=== PATIENT | female | born 1955 | race African-American/Black ===

== ENCOUNTER 2017-06-01 07:11 | Inpatient (IN) ==
[2017-06-01] MEDS ORDERED: ASPIRIN 325 MG TABLET PO STA (07:27)
[2017-06-01] MEDS ORDERED: KETOROLAC 30 MG/1 ML VIAL IV STA (07:27)
[2017-06-01] MEDS ORDERED: NITROGLYCERIN 2% OINT 1 INCH/GM PACK TOP STA (07:27)
[2017-06-01] MEDS ORDERED: METOPROLOL TARTRATE 5 MG/5 ML VIAL IV STA ×2 (07:27→08:24)
--- NOTE | 2017-06-01 07:31 | Emergency Department Note ---
Arrival - Arrival Chief Complaint: Chest Pain ED Nursing Triage Note: Patient sent from renal care with complaint of chest pain. States that pain is under her left breast. States that she had it all night. Non-radiating. States that it is a pressure type pain. Some relief with nitroglycerine. Mode of Arrival: Stretcher Limitations: No Limitations Source: Patient Time Seen by Provider: 06/01/17 07:27 - History of Present Illness HPI Narrative: This 62-year-old black female presents with intermittent left-sided chest pain under her left breast not associated with nausea, vomiting, diaphoresis, or shortness of breath. She likewise denies any heartburn, belching, water brash, orthopnea, or PND. The patient is a dialysis patient and expressed complaints of pain this morning prior to dialysis and was referred here without receiving any dialysis today. At the moment she has no complaints of pain and is medically stable. Onset (ago): hour(s) (Patient presents 12 hours post onset of symptoms) Allergies/Adverse Reactions: Allergies Allergy/AdvReac Type Severity Reaction Status Date / Time iodine Allergy RASH Verified 04/28/17 08:58 Home Medications: Home Medications Medication Instructions Recorded Confirmed Type Labetalol Tab [Trandate Tab] 300 mg PO BID 02/15/15 09/05/16 History hydrALAZINE TAB [Apresoline Tab] 50 mg PO TID 02/15/15 09/05/16 History Doxazosin [Cardura] 2 mg PO DAILY 09/05/16 09/05/16 History Gabapentin 200 mg PO BID 09/05/16 09/05/16 History HYDROcodone/ACETAMIN 7.5-325 1 tablet PO Q6H #14 tablet 09/05/16 Rx [Martin 7.5-325] Insulin Glargine [Lantus] 45 unit SUBCUT DAILY 09/05/16 09/05/16 History Travoprost 0.004% Oph Soln 1 drop BOTH EYES BEDTIME 09/05/16 09/05/16 History [Travatan Z] amLODIPine [Norvasc] 10 mg PO DAILY 09/05/16 09/05/16 History cloNIDine TAB [Catapres Tab] 0.3 mg PO TID 09/05/16 09/05/16 History HYDROcodone/ACETAMIN 7.5-325 1 tablet PO Q6H PRN #20 tablet 04/28/17 Rx [Martin 7.5-325] Ondansetron Odt Tab [Zofran Odt] 4 mg PO Q8H PRN #10 tablet 04/28/17 Rx Review of System - Review of System 12 point system: reviewed and no additional remarkable complaints except as stated - Review of System Constitutional: Present: as per HPI Respiratory: Present: as per HPI Cardiovascular: Present: as per HPI Gastrointestinal: Present: as per HPI Genitourinary female: Present: as per HPI Medical,Surgical,& Family Hx - Medical History Cardio: History of: Hypertension, [place] (2011) Neurology: History of: Cerebrovascular Accident (2011) No history of: Seizures Endocrine: History of: Diabetes Mellitus (IDDM) Renal: History of: Dialysis ( DR TUTTLE), Renal Failure Musculoskeletal: History of: Musculoskeletal Problems (FX LEFT DISTAL RADIUS) - Surgical History HEENT Surgeries: Surgical HX of: Eye Surgery (CATARACTS) Orthopedic Surgeries: Surgical HX of;: Orthopedic Surgery (ORIF LEFT DITAL RADIUS) - Family History Family History: Reports;: Family Cancer (SISTER), Family Diabetes (DAD) - Social History Smoking Status: Never smoker Exam Physical Examination: GENERAL: Well developed, well nourished black female in no acute distress. HEENT: Normocephalic. No trauma. Moist mucous membranes. EOMI. PERRLA. ENT NML NECK: Supple. No adenopathy. CARDIAC: Regular. No murmurs. Heart rate 70 CHEST: Clear to auscultation. No respiratory distress. O2 sat 94% ABDOMEN: Soft. Nontender. Active bowel sounds. EXTREMITIES: No trauma. Normal ROM. No pedal edema. Left thigh fistula with good thrill SKIN: No diaphoresis. No rash. NEURO: Alert. Neuro intact. No focal deficits. Vital Signs: Vital Signs Temperature 98.0 F 06/01/17 08:15 Pulse Rate 69 06/01/17 09:09 Respiratory Rate 18 06/01/17 09:09 Blood Pressure 180/74 06/01/17 09:09 O2 Sat by Pulse Oximetry 100 06/01/17 09:09 Course - Reevaluation(s) Reevaluation #1: Discussed with patient the results of her studies which revealed significant fluid overload as well as her significant hypertension problems require hospitalization for further evaluation treatment. - Consultations Consultation #1: Discussed with hospitalist service who will admit for further evaluation treatment. Results - Labs CBC & BMP: 06/01/17 07:51 06/01/17 07:51 - Impressions EKG: Sinus rhythm at 70 with normal KS interval and QRS duration. Possible old anterior infarct versus poor R-wave progression anteriorly. Nonspecific ST changes with some leads revealing peak T's in inferior leads revealing T-wave inversion. - Diagnostic Findings Procedure: Chest x-ray: image reviewed by me, report reviewed by me ( Cardiomegaly with moderate congestive failure and bilateral small pleural effusions) Disposition Clinical Impression: Congestive heart failure, Chronic renal failure, Dialysis dependent renal failure, Uncontrolled blood pressure. Case discussed with: patient Disposition: Still a Patient Condition: Guarded Time of Disposition: 09:12
--- NOTE | 2017-06-01 07:46 | XRay Report ---
Portable chest Date: 06/01/2017 Clinical history: Chest pain Comparison: 10/21/2015 Technique: Portable AP sitting chest Findings: The heart is minimally enlarged with calcification in the aortic knob. Progressive diffuse parenchymal findings especially in the lower lung zones with small pleural effusions. The pulmonary vasculature is more prominent. Degenerative changes with multiple metallic stents and additional postoperative findings in the right arm. Impression: Cardiomegaly with [id number] CHF and small pleural effusions. PROCEDURE INTERPRETED AT [facility] DEPARTMENT OF RADIOLOGY Final Report Signed by: Dr. Trena Melton
[2017-06-01] MEDS ORDERED: NITROGLYCERIN 2% OINT 1 INCH/GM PACK TOP ONE (07:53)
[2017-06-01] MEDS ORDERED: KETOROLAC 30 MG/1 ML VIAL ONE (07:54)
[2017-06-01] MEDS ORDERED: METOPROLOL TARTRATE 5 MG/5 ML VIAL IV ONE ×2 (07:54→08:21)
[2017-06-01 08:01] LABS: Basophils # 0.1 10*3/uL (0.0-0.2); Basophils % 1.3 % (0.0-0.8); Eosinophils # 0.1 10*3/uL (0.0-0.87); Eosinophils % 2.5 % (0.00-10.9); Hematocrit 30.6 VOL% (35.7-47.0); Hemoglobin 9.5 GM/DL (12.0-16.0); Immature Granulocytes % 0.5 %; Immature Granulocytes Absolute 0.02 #; Lymphocytes # 0.9 10*3/uL (1.4-4.0); Lymphocytes % 21.8 % (21.3-54.2); Mean Corpuscular Hemoglobin 27 PG (27-34); Mean Corpuscular Volume 88.2 FL (87-102); Mean Platelet Volume 11.5 FL (9.6-12.0); Monocytes # 0.4 10*3/uL (0.11-0.8); Monocytes % 10.3 % (1.7-12.7); Neutrophils # 2.6 10*3/uL (1.4-7.4); Neutrophils % 63.6 % (38.7-73.9); Platelet Count 170 T/CUMM (130-400); Red Blood Count 3.47 MC/CUMM (3.8-5.5); Red Cell Distribution Width 15.7 % (9.3-17.3)
[2017-06-01 08:10] LABS: INR 1.1; PT Patient Result 11.8 SECS; Partial Thromboplastin Time 27.6 SECS (0-40)
[2017-06-01] MEDS ORDERED: hydrALAZINE 20 MG/1 ML VIAL ONE (08:21)
[2017-06-01] MEDS ORDERED: hydrALAZINE 20 MG/1 ML VIAL IV STA (08:24)
[2017-06-01 08:51] LABS: Alanine Aminotransferase < 9 U/L (13-56); Albumin 3.3 G/DL (3.4-5.0); Alkaline Phosphatase 366 U/L (45-117); Aspartate Amino Transferase 16 U/L (0-37); Blood Urea Nitrogen 21 MG/DL (7-18); Calcium 7.7 MG/DL (8.5-10.1); Glucose 225 MG/DL (74-106); Osmolality,Calculated 282.8 MOS/KG (273-304); Sodium 137 MMOL/L (136-145); Total Protein 8.1 G/DL (6.4-8.3); Troponin I Only 0.016 NG/ML (0.00-0.045)
--- NOTE | 2017-06-01 09:46 | Hospitalist History & Physical ---
<Rural ValleyMichel beck - Last Filed: 06/01/17 10:14> Assessment and Plan - Time spent with patient Time spent with patient: Greater than 30 minutes (1) End-stage renal disease on hemodialysis Status: Acute Assessment and plan: Patient dialyzes MWF in [place]. Will need to continue dialysis today. Nephrology has been consulted. Current Visit: Yes (2) CHF (congestive heart failure) Status: Acute Assessment and plan: History of CHF. Has been followed by Dr. Benítez in the past but has not seen a butcher helper in over 3 years. Echocardiogram. Consult cardiology. Current Visit: Yes (3) Diabetes mellitus Status: Acute Assessment and plan: Accu-cheks ACHS. SS insulin per protocol. Current Visit: Yes (4) Hypertension Status: Acute Assessment and plan: Continue home medications. Add hydralazine PRN. Current Visit: Yes (5) History of [place] (myocardial infarction) Status: Acute Assessment and plan: LHC in past without intervention. Ordering an echo today. Cardiology has been consulted. Current Visit: Yes History of Present Illness Chief complaint: chest tightness History of present illness: Ms. Man is a 62 year old female with a past medical history significant for hypertension, CHF, IL, ESRD on HD who presents with complaints of chest pain/tightness having onset this morning. The patient dialyzes on MWF at the [place] dialysis center and was set to dialyze this morning when she developed chest tightness. She was then referred to the ER for further evaluation prior to dialysis. En route to the ED, the patient received SL NTG with minimal relief. In the ER, the patient was found to be hypertensive and still complaining of chest tightness. 1/2 inch NTG paste was applied to her chest. At the time of my exam, the patient was resting comfortably with her daughter at bedside. Her daughter reports that the patient has been complaining of intermittent chest pain for the past 2 weeks. She did go to the [facility] on yesterday at which time she had an EKG that showed no acute events. She confirms continued chest "tightness" localized in the left chest that is nonradiating and nonreproducible to palpation. She denies headache , blurry vision, shortness of breath, abdominal pain, nausea/vomiting, change in appetite or bowel habits. The patient has been on HD for approx 12 years and no longer makes urine. Hematology is grossly normal. BUN 21 creatinine 6.30, serum glucose 225, troponin I 0.016, BNP 883. Chest x-ray shows cardiomegaly with mild to moderate CHF and small pleural effusions. This case been discussed with both Dr. Mccann, ER physician, Dr. Antony, admitting physician, and the patient will be admitted to the hospital medicine service for further evaluation and treatment. Patient is a full code. Home medications have been reviewed and reconciled. Of note, the patient has previously been followed by Dr. Benítez but has not been seen in over 3 years. Her PCP is Deyanira Bergman. Her autopsy pathologist is the [facility]. Home Medications Medication Instructions Recorded Confirmed Type Labetalol Tab [Trandate Tab] 300 mg PO BID 02/15/15 06/01/17 History hydrALAZINE TAB [Apresoline Tab] 50 mg PO TID 02/15/15 06/01/17 History amLODIPine [Norvasc] 10 mg PO QAM 09/05/16 06/01/17 History cloNIDine TAB [Catapres Tab] 0.3 mg PO TID 09/05/16 06/01/17 History HYDROcodone/ACETAMIN 7.5-325 1 tablet PO Q6H PRN #20 tablet 04/28/17 06/01/17 Rx [[place] 7.5-325] Carbidopa/Levodopa 25-100 [Sinemet 1 tablet PO TID 06/01/17 06/01/17 History 25-100] Cinacalcet HCl [Sensipar] 90 mg PO QAM 06/01/17 06/01/17 History Insulin Degludec [Tresiba 10 units SUBCUT BEDTIME 06/01/17 06/01/17 History Flextouch U-100] Nadolol [Nadolol] 40 mg PO BID 06/01/17 06/01/17 History Sevelamer Carbonate Tab [Renvela 800 mg PO TID W/MEALS 06/01/17 06/01/17 History Tab] Allergies Allergy/AdvReac Type Severity Reaction Status Date / Time iodine Allergy RASH Verified 04/28/17 08:58 Medical,Surgical,& Family Hx - Medical History Cardio: History of: Hypertension, [place] (2011) Neurology: History of: Cerebrovascular Accident (2011) No history of: Seizures Endocrine: History of: Diabetes Mellitus (IDDM) Renal: History of: Dialysis (-w- DR TUTTLE), Renal Failure Musculoskeletal: History of: Musculoskeletal Problems (FX LEFT DISTAL RADIUS) - Surgical History HEENT Surgeries: Surgical HX of: Eye Surgery (CATARACTS) Reproductive Surgeries: Surgical HX of;: Hysterectomy Orthopedic Surgeries: Surgical HX of;: Orthopedic Surgery (ORIF LEFT DITAL RADIUS) - Family History Family History: Reports;: Family Cancer (SISTER), Family Diabetes (DAD), Family Hypertension - Social History Smoking Status: Never smoker Frequency of Alcohol Use: None Type of Drug Use: None Marital Status: Single Lives With:: Alone Functional capacity: independent ambulation 12 point system: reviewed and no additional remarkable complaints except as stated Exam - Constitutional Vitals: Period Temp Pulse Resp BP Sys/Lewis Pulse Ox Last 24 Hr 98.0 F-98.0 F 66-70 18-19 162-232/74-113 94-100 Exam: General appearance: overweight, no acute distress - Head Head exam: Present: normocephalic, atraumatic - Eye Eye exam: Present: EOMI. Absent: conjunctival injection, nystagmus Pupils: Present: MAYITO, normal accommodation - ENT ENT exam: Present: normal exam, normal external ear exam - Neck Neck exam: Present: normal inspection. Absent: lymphadenopathy, tenderness, thyromegaly - Respiratory Respiratory exam: Present: decreased breath sounds throughout. Absent: wheezes - Cardiovascular Cardiovascular exam: Present: regular rate and rhythm. Absent: carotid bruit, gallop, rubs - GI/Abdominal GI/Abdominal exam: Present: normal bowel sounds. Absent: ascites, distended, mass - Extremities Exam Extremities exam: Present: normal inspection, normal capillary refill, left femoral AV graft, edematous LLE. - Back Exam Back exam: Absent: CVA tenderness (L), CVA tenderness (R) - Neurological Exam Neurological exam: Present: alert, oriented X3, CN II-XII intact, reflexes normal - Psychiatric Psychiatric exam: Present: normal affect, normal mood - Skin Skin exam: Present: normal color, warm, dry Results - Labs CBC & BMP: 06/01/17 07:51 06/01/17 07:51 Lab Results: I have reviewed the past 24 hour labs - Diagnostic Findings Procedure: Chest x-ray: image reviewed by me, report reviewed by me (Mild CHF) <Xenia Antony - Last Filed: 06/01/17 16:44> History of Present Illness History of present illness: Ms. Man is a 62 year old female Exam - Constitutional Vitals: Period Temp Pulse Resp BP Sys/Lewis Pulse Ox Last 24 Hr 97.8 F-98.0 F 66-70 18-20 162-232/74-113 94-100 Results - Labs CBC & BMP: 06/01/17 07:51 06/01/17 07:51 - Impressions Patient seen and examined. I have reviewed the H&P by PRASHANT Lopez, and I agree with the documentation. Medications reconciled. Labs/ekg/cxray reviewed. Active Issues: 1. Acute chest pain, concerning for ACS. EKG shows TWI in leads III and AVF. She will be undergoing further evaluation with C. Appreciate help by cardiology 2. Hypertensive crises: blood pressure has improved since HD. Will continue home regimen of norvasc. Will likely benefit from coreg. 3. h/o ESRD: patient undergoes HD MWF. Today, she developed chest pain while at outpatient dialysis. She was brought here for further evaluation. She underwent HD today and 3.5L was pulled off. Appreciate help from nephrology. 4. h/o DM will control sugars with insulin regimen 5. Volume overload: symptomatic with elevated BNP in the setting of ESRD. Cxray showed cardiomegaly with mild to moderate small pleural effusions. Would benefit from echo. Plan is to await results of LHC and follow cardiology recommendations. Control blood pressure and sugars. Suspect a short stay. CODE: FULL
[2017-06-01] MEDS ORDERED: ONDANSETRON 4 MG/2 ML VIAL IV PRN (11:17)
[2017-06-01] MEDS ORDERED: GLUCAGON 1 MG VIAL IM PRN ×2 (11:17)
[2017-06-01] MEDS ORDERED: DOCUSATE SODIUM 100 MG CAPSULE PO PRN (11:17)
[2017-06-01] MEDS ORDERED: LACTULOSE 20 GM/30 ML UDCUP PO PRN (11:17)
[2017-06-01] MEDS ORDERED: DEXTROSE 50% 25 GM/50 ML VIAL IV PRN (11:17)
[2017-06-01] MEDS ORDERED: DEXTROSE 50% 25 GM/50 ML SYRINGE IV PRN (11:17)
--- NOTE | 2017-06-01 14:58 | Nephrology Consult Note ---
History of Present Illness Chief complaint: End-stage renal disease History of present illness: Ms. Man is a 62 year old female history of end-stage renal disease due to hypertension and diabetes dialyzes at the [place] dialysis unit on them Sunday schedule. Patient presented to the dialysis unit today feeling shortness of breath and started having chest pain before dialysis was initiated. She was subsequently transferred to [facility]. She states the chest pressure is slightly better. She is found to be a volume overload with a BNP greater than 800. No fevers or chills. No change in her medications. Home Medications Medication Instructions Recorded Confirmed Type Labetalol Tab [Trandate Tab] 300 mg PO BID 02/15/15 06/01/17 History hydrALAZINE TAB [Apresoline Tab] 50 mg PO TID 02/15/15 06/01/17 History amLODIPine [Norvasc] 10 mg PO QAM 09/05/16 06/01/17 History cloNIDine TAB [Catapres Tab] 0.3 mg PO TID 09/05/16 06/01/17 History HYDROcodone/ACETAMIN 7.5-325 1 tablet PO Q6H PRN #20 tablet 04/28/17 06/01/17 Rx [Bessie 7.5-325] Carbidopa/Levodopa 25-100 [Sinemet 1 tablet PO TID 06/01/17 06/01/17 History 25-100] Cinacalcet HCl [Sensipar] 90 mg PO QAM 06/01/17 06/01/17 History Insulin Degludec [Tresiba 10 units SUBCUT BEDTIME 06/01/17 06/01/17 History Flextouch U-100] Nadolol [Nadolol] 40 mg PO BID 06/01/17 06/01/17 History Sevelamer Carbonate Tab [Renvela 800 mg PO TID W/MEALS 06/01/17 06/01/17 History Tab] Allergies Allergy/AdvReac Type Severity Reaction Status Date / Time iodine Allergy RASH Verified 04/28/17 08:58 Medical,Surgical,& Family Hx - Medical History Cardio: History of: Hypertension, [place] (2011) Neurology: History of: Cerebrovascular Accident (2011) No history of: Seizures Endocrine: History of: Diabetes Mellitus (IDDM) Renal: History of: Dialysis (- DR TUTTLE), Renal Failure Musculoskeletal: History of: Musculoskeletal Problems (FX LEFT DISTAL RADIUS) - Surgical History HEENT Surgeries: Surgical HX of: Eye Surgery (CATARACTS) Reproductive Surgeries: Surgical HX of;: Hysterectomy, Tubal Ligation Orthopedic Surgeries: Surgical HX of;: Orthopedic Surgery (ORIF LEFT DITAL RADIUS) - Family History Family History: Reports;: Family Cancer (SISTER), Family Diabetes (DAD), Family Hypertension - Social History Smoking Status: Never smoker Frequency of Alcohol Use: None Type of Drug Use: None Review of Systems Constitutional: no anorexia, no chills, no fatigue Cardiovascular: chest pain at rest, dyspnea, dyspnea on exertion Respiratory: dyspnea Gastrointestinal: no abdominal pain Genitourinary: no dysuria Exam - Vital Signs Vital signs: Period Temp Pulse Resp BP Sys/Lewis Pulse Ox Last 24 Hr 97.8 F-98.0 F 66-70 18-20 162-232/74-113 94-100 - General Appearance General appearance: well-developed, well-nourished EENT: ATNC, PERRL Neck: supple Respiratory: clear Cardiology: no edema, regular rate, regular rhythm Gastrointestinal: normoactive bowel sounds, no tenderness Neurologic: alert and oriented x3 Musculoskeletal: no deformities, no erythema, no clubbing Psychiatric: mood/affect appropriate, cooperative Results - Labs CBC & BMP: 06/01/17 07:51 06/01/17 07:51 Assessment and Plan (1) End-stage renal disease on hemodialysis Status: Chronic Assessment and plan: Continue with scheduled hemodialysis for this patient. Current Visit: Yes (2) Diabetes mellitus Status: Chronic Current Visit: Yes Qualifiers: Diabetes mellitus type: type 2 (3) Hypertension Status: Chronic Current Visit: Yes (4) CHF (congestive heart failure) Status: Chronic Current Visit: Yes (5) Chest pain Status: Acute Current Visit: Yes
--- NOTE | 2017-06-01 14:59 | Dialysis Note ---
Dialysis Note - Dialysis Note Patient seen on dialysis. She is tolerating the procedure. Extremity removed 3 -1/2 L of fluid. Blood pressure noted to be 170/80. Cardiovascular regular rate. Lungs are clear anterior. Abdomen is soft.
[2017-06-01] MEDS ORDERED: DIAZEPAM 5 MG TABLET PO ONE (15:19)
[2017-06-01] MEDS ORDERED: diphenhydrAMINE CAP 25 MG CAPSULE PO ONE (15:19)
[2017-06-01] MEDS ORDERED: POTASSIUM CHLORIDE RIDER 10 MEQ in PREMIX 1 EACH IV PRN (15:19)
[2017-06-01] MEDS ORDERED: MAGNESIUM SULF RIDER 2 GM in PREMIX 1 EACH IV PRN (15:19)
--- NOTE | 2017-06-01 15:23 | Cardiology Consult Note ---
Ernesto, Laurence Doshi RN, am scribing for, and in the presence of, Itz Jackson MD 15:22. Assessment and Plan - Time spent with patient Time spent with patient: Greater than 30 minutes (Due to assessment, planning, documentation, medication review) (1) Unstable angina Status: Acute Assessment and plan: The patient has symptoms very concerning for unstable angina. She has new EKG changes. She has multiple cardiac risk factors. She has new onset congestive heart failure. I think we should perform cardiac catheterization for definitive coronary artery assessment. I would like to use a right femoral artery access. I discussed the risks and alternatives with the patient today who understands and wishes to proceed. Current Visit: Yes (2) Chest pain Status: Acute Current Visit: Yes (3) CHF (congestive heart failure) Status: Chronic Current Visit: Yes (4) Diabetes mellitus Status: Chronic Current Visit: Yes Qualifiers: Diabetes mellitus type: type 2 (5) End-stage renal disease on hemodialysis Status: Chronic Current Visit: Yes (6) History of AL (myocardial infarction) Status: Chronic Current Visit: No (7) Hypertension Status: Chronic Current Visit: Yes History of Present Illness - Data of Consult Patient: known to practice within the last 3 years Consult date: 06/01/17 Requesting Physician: Michel Lopez Primary care physician: Deyanira Bergman - Consult Narrative Reason for consult: CHF History of present illness: 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 Porras (last seen December 2015) Ms. Man is a 62 year old female with a history of AL, hypertension, CVA, IDDM, and dialysis. She dialyzes Wednesdays and Fridays. She said when she had her AL she did not require any stents. She had a heart cath with Dr. Christensen June 2004 for complaints of dyspnea that did not show any significant coronary artery disease. She reports she is a lifetime non-smoker. She was seen today in dialysis along with Dr. Jerome. She began having left-sided chest tightness this morning. It did not radiate and is not reproducible with palpation, deep breathing, or movement of her left arm. She states exertion did make it worse, and resting did help the pain. She said it was a constant pain and she rated a 7 on a scale of 1-10. She denies any shortness of breath, palpitations, nausea, or dizziness with this pain. However she does tell me she has 4 pillow orthopnea and increased dyspnea on exertion. She presented to the emergency department for further evaluation. Chest x-ray showed cardiomegaly with mild to moderate CHF and small pleural effusions. EKG was sinus rhythm, heart rate of 70, no acute changes. Troponin has been negative. BNP was 883. Blood pressure was elevated in the emergency department, as high as 232/113. She was given IV Lopressor and hydralazine. She was given Nitro-Bid ointment in the emergency department, she states this did help her chest tightness. Her EKG shows new deep T-wave inversions in the inferior leads very concerning for ischemia. I discussed her case today with Dr. Jerome and I think she would be best served by cardiac catheterization for definitive coronary artery assessment. We are going to try to get that done later today. She now rates her chest tightness as a 3 on a scale of 1-10. She continues to deny any shortness of breath. Her pressures have improved, last pressure was 181/80. O2 sat 96% on 2 L of oxygen. CC: Xenia Antony MD - Home Medications and Allergies Home Medications: Home Medications Medication Instructions Recorded Confirmed Type Labetalol Tab [Trandate Tab] 300 mg PO BID 02/15/15 06/01/17 History hydrALAZINE TAB [Apresoline Tab] 50 mg PO TID 02/15/15 06/01/17 History amLODIPine [Norvasc] 10 mg PO QAM 09/05/16 06/01/17 History cloNIDine TAB [Catapres Tab] 0.3 mg PO TID 09/05/16 06/01/17 History HYDROcodone/ACETAMIN 7.5-325 1 tablet PO Q6H PRN #20 tablet 04/28/17 06/01/17 Rx [Goldonna 7.5-325] Carbidopa/Levodopa 25-100 [Sinemet 1 tablet PO TID 06/01/17 06/01/17 History 25-100] Cinacalcet HCl [Sensipar] 90 mg PO QAM 06/01/17 06/01/17 History Insulin Degludec [Tresiba 10 units SUBCUT BEDTIME 06/01/17 06/01/17 History Flextouch U-100] Nadolol [Nadolol] 40 mg PO BID 06/01/17 06/01/17 History Sevelamer Carbonate Tab [Renvela 800 mg PO TID W/06/01/17 06/01/17 History Tab] Allergies/Adverse Reactions: Allergies Allergy/AdvReac Type Severity Reaction Status Date / Time iodine Allergy RASH Verified 04/28/17 08:58 - Constitutional Constitutional: Present: as per HPI - EENT Eyes: Present: requires corrective lense. Absent: blurry vision Ears: Absent: ear pain, tinnitus Nose, mouth and throat: Absent: dysphagia, epistaxis, headache(s), neck pain, sore throat - Cardiovascular Cardiovascular: Present: chest pain at rest, chest pain with activity, edema, orthopnea (4 pillow orthopnea). Absent: diaphoresis, dyspnea, dyspnea on exertion, radiating jaw, neck or arm pain, lightheadedness, palpitations - Respiratory Respiratory: Present: cough. Absent: dyspnea, hemoptysis, dyspnea on exertion, wheezing - Gastrointestinal Gastrointestinal: Absent: abdominal pain, constipation, diarrhea, hematemesis, hematochezia, melena, nausea, vomiting - Genitourinary Genitourinary: Absent: dysuria, hematuria - Musculoskeletal Musculoskeletal: Present: limited range of motion, muscle weakness - Neurological Neurological: Present: abnormal gait, abnormal speech. Absent: confusion, dizziness, headache(s), syncope - Psychiatric Psychiatric: Absent: anxiety, depression - Endocrine Endocrine: Present: fatigue - Hematologic/Lymphatic Hematologic/Lymphatic: Present: easy bruising. Absent: easy bleeding Medical,Surgical,& Family Hx - Medical History Cardio: History of: Hypertension, AL (2011) Neurology: History of: Cerebrovascular Accident (2011) Endocrine: History of: Diabetes Mellitus (IDDM) Renal: History of: Dialysis (- DR TUTTLE), Renal Failure Musculoskeletal: History of: Musculoskeletal Problems (FX LEFT DISTAL RADIUS) - Surgical History HEENT Surgeries: Surgical HX of: Eye Surgery (CATARACTS) Reproductive Surgeries: Surgical HX of;: Hysterectomy, Tubal Ligation Orthopedic Surgeries: Surgical HX of;: Orthopedic Surgery (ORIF LEFT DITAL RADIUS) - Family History Family History: Reports;: Family Cancer (SISTER), Family Diabetes (DAD), Family Hypertension - Social History Smoking Status: Never smoker Have you smoked in the last 12 months: No Frequency of Alcohol Use: None Type of Drug Use: None Lives With:: Children Functional capacity: uses cane/walker Physical Examination Vital Signs Temp Pulse Resp BP Pulse Ox 98.0 F 70 19 162/92 100 06/01/17 07:15 06/01/17 07:15 06/01/17 07:15 06/01/17 07:15 06/01/17 07:15 General: Present: Appears Well, No Apparent Distress HEENT: Present: PERRL, Mucus Membranes Moist Neck: Present: Supple Neck, Midline Trachea, No Bruit Cardiac: Present: Reg Rate and Rhythm, Systolic Murmur Lungs: Present: Normal Breath Sounds, Oxygen (Via nasal cannula), No Wheeze, Rales, Rhonchi Neuro: Absent: Resting Tremor, Essential Tremor Abdomen: Present: Soft, Active Bowel Sounds Skin: Absent: Rash, Suspicious Lesions Gait: Present: Poor Gait Extremities: Present: Normal Upper Extr. Pulses, Normal Lower Extr. Pulses, Edema (Edema to left lower extremity), Other (Dialysis access to left thigh). Absent: Normal Gait Result/EKG - Labs CBC & BMP: 06/01/17 07:51 06/01/17 07:51 Lab Results: I have reviewed the past 24 hour labs Labs: Laboratory Results - last 24 hr 06/01/17 06/01/17 06/01/17 07:51 07:51 07:51 WBC RBC Hgb Hct MCV MCH MCHC RDW Plt Count MPV Neut % (Auto) Lymph % (Auto) [place] % (Auto) Eos % (Auto) Baso % (Auto) Neut # (Auto) Lymph # (Auto) [place] # (Auto) Eos # (Auto) Baso # (Auto) Immature Gran % Nucleated RBC % Immature Gran # Nucleated RBCs # Immature Plt Fraction INR 1.1 PT Patient/Control Mix 11.8 Circ Anticoag PTT 27.6 Sodium 137 Potassium 4.0 Chloride 101 Carbon Dioxide 27 Anion Gap 13.0 BUN 21 H Creatinine 6.30 H GFR Calculation 8 BUN/Creatinine Ratio 3.00 L Glucose 225 H Hemoglobin A1c Calculated Osmolality 282.8 Calcium 7.7 L Total Bilirubin 0.50 AST 16 ALT < 9 L Alkaline Phosphatase 366 H Total Creatine Kinase 84 CK-MB (CK-2) 2.3 Troponin I 0.016 B-Natriuretic Peptide 883 H Total Protein 8.1 Albumin 3.3 L Globulin 4.8 H Albumin/Globulin Ratio 0.6 L Free T4 TSH 3rd Generation 06/01/17 06/01/17 06/01/17 07:51 11:51 11:51 WBC 4.0 RBC 3.47 L Hgb 9.5 L Hct 30.6 L MCV 88.2 MCH 27 MCHC 31.0 L RDW 15.7 Plt Count 170 MPV 11.5 Neut % (Auto) 63.6 Lymph % (Auto) 21.8 [place] % (Auto) 10.3 Eos % (Auto) 2.5 Baso % (Auto) 1.3 H Neut # (Auto) 2.6 Lymph # (Auto) 0.9 L [place] # (Auto) 0.4 Eos # (Auto) 0.1 Baso # (Auto) 0.1 Immature Gran % 0.5 Nucleated RBC % 0.0 Immature Gran # 0.02 Nucleated RBCs # 0.00 Immature Plt Fraction 0.0 INR PT Patient/Control Mix Circ Anticoag PTT Sodium Potassium Chloride Carbon Dioxide Anion Gap BUN Creatinine GFR Calculation BUN/Creatinine Ratio Glucose Hemoglobin A1c 8.4 H Calculated Osmolality Calcium Total Bilirubin AST ALT Alkaline Phosphatase Total Creatine Kinase CK-MB (CK-2) Troponin I B-Natriuretic Peptide Total Protein Albumin Globulin Albumin/Globulin Ratio Free T4 1.36 TSH 3rd Generation 06/01/17 11:51 WBC RBC Hgb Hct MCV MCH MCHC RDW Plt Count MPV Neut % (Auto) Lymph % (Auto) [place] % (Auto) Eos % (Auto) Baso % (Auto) Neut # (Auto) Lymph # (Auto) [place] # (Auto) Eos # (Auto) Baso # (Auto) Immature Gran % Nucleated RBC % Immature Gran # Nucleated RBCs # Immature Plt Fraction INR PT Patient/Control Mix Circ Anticoag PTT Sodium Potassium Chloride Carbon Dioxide Anion Gap BUN Creatinine GFR Calculation BUN/Creatinine Ratio Glucose Hemoglobin A1c Calculated Osmolality Calcium Total Bilirubin AST ALT Alkaline Phosphatase Total Creatine Kinase CK-MB (CK-2) Troponin I B-Natriuretic Peptide Total Protein Albumin Globulin Albumin/Globulin Ratio Free T4 TSH 3rd Generation 2.880 - Diagnostic Findings Procedure: Chest x-ray: report reviewed by me - EKG EKG results: interpreted by me EKG shows: sinus rhythm IRenetta Michael, MD, personally performed the services described in this documentation, ascribed by Laurence Doshi RN in my presence, and it is both accurate and complete [id number] .
[2017-06-01] MEDS: INSULIN LISPRO 100 UNIT/ML SUBCUT SCH ×3 (15:27→20:10)
[2017-06-01] MEDS ORDERED: HEPARIN/NACL 0.9% 2 UNITS/ML 1,000 ML IV ONE (16:12)
[2017-06-01] MEDS ORDERED: LIDOCAINE 1% 20 ML VIAL ONE (16:25)
[2017-06-01] MEDS ORDERED: HYDROmorphone 2 MG/1 ML VIAL ONE (16:26)
[2017-06-01] MEDS ORDERED: MIDAZOLAM 2 MG/2 ML VIAL ONE (16:27)
[2017-06-01] MEDS ORDERED: diphenhydrAMINE 50 MG/1 ML VIAL ONE (16:44)
[2017-06-01] MEDS ORDERED: LABETALOL 20 MG/4 ML SYRINGE IV ONE ×2 (16:49)
--- NOTE | 2017-06-01 17:07 | Event Note ---
Cardiac catheterization showed some diffuse mild to moderate disease but nothing I think requires a stent at this time. She had preserved left ventricular systolic function as well. I made some adjustments in her medications to try to improve her blood pressure which was quite high at the time of the catheterization. From my standpoint if she is doing well tomorrow she could be discharged home. She might benefit from a bit more volume removal at dialysis.
[2017-06-01] MEDS: PANTOPRAZOLE 40 MG TABLET PO SCH (18:18)
[2017-06-01] MEDS: SEVELAMER CARBONATE 800 MG TABLET PO SCH (19:20)
[2017-06-01] MEDS: CARVEDILOL 12.5 MG TABLET PO SCH (20:16)
[2017-06-01] MEDS: CARBIDOPA/LEVODOPA 25-100 MG TABLET PO SCH (20:16)
[2017-06-02 05:18] LABS: Basophils % 0.6 % (0.0-0.8); Eosinophils # 0.1 10*3/uL (0.0-0.87); Eosinophils % 2.3 % (0.00-10.9); Hemoglobin 9.1 GM/DL (12.0-16.0); Immature Granulocytes % 0.3 %; Immature Granulocytes Absolute 0.01 #; Lymphocytes # 0.9 10*3/uL (1.4-4.0); Lymphocytes % 25.2 % (21.3-54.2); Mean Corpuscular HGB Conc 31.4 GM/DL (32-36); Mean Corpuscular Hemoglobin 28 PG (27-34); Mean Corpuscular Volume 87.9 FL (87-102); Mean Platelet Volume 11.4 FL (9.6-12.0); Monocytes # 0.4 10*3/uL (0.11-0.8); Monocytes % 12.2 % (1.7-12.7); Neutrophils # 2.1 10*3/uL (1.4-7.4); Neutrophils % 59.4 % (38.7-73.9); Platelet Count 187 T/CUMM (130-400); Red Cell Distribution Width 15.6 % (9.3-17.3); White Blood Count 3.5 T/CUMM (4-12)
[2017-06-02 05:57] LABS: Calcium 7.6 MG/DL (8.5-10.1); Magnesium 2.3 MG/DL (1.8-2.4); Osmolality,Calculated 281.7 MOS/KG (273-304); Risk Ratio 6.21; VLDL CHOLESTEROL 79.4 MG/DL
--- NOTE | 2017-06-02 08:53 | XRay Report ---
XR chest 1V portable Indication: Congestive heart failure, shortness of breath Comparison: None available Findings: The heart and mediastinum are stable in size and configuration. The pulmonary vascularity is increased similar to previous study. There is increased right lower lung density. No other lung infiltrates, effusions, pneumothorax or other abnormality is demonstrated. Impression: Increased vascularity similar to previous exam. Increased right lower lung density, could indicate pneumonia. PROCEDURE INTERPRETED AT [facility] DEPARTMENT OF RADIOLOGY Final Report Signed by: Dr. Feliz Haines
[2017-06-02] MEDS ORDERED: CINACALCET 30 MG TABLET PO SCH (09:00)
[2017-06-02] MEDS ORDERED: amLODIPine 10 MG TABLET PO SCH (09:00)
--- NOTE | 2017-06-02 09:20 | Dialysis Note ---
Dialysis Note - Dialysis Note Patient seen on dialysis. She is tolerating the procedure. She denies any shortness of breath or chest pain. Patient underwent cardiac cath yesterday did not show significant coronary artery disease. Blood pressure 158/80. Cardiovascular regular rate. Lungs clear to auscultation. Abdomen is soft.
[2017-06-02] MEDS: INSULIN LISPRO 100 UNIT/ML SUBCUT SCH ×3 (09:55→15:55)
[2017-06-02] MEDS: SEVELAMER CARBONATE 800 MG TABLET PO SCH ×2 (09:56→12:29)
[2017-06-02] MEDS: CARVEDILOL 12.5 MG TABLET PO SCH (09:56)
[2017-06-02] MEDS: CARBIDOPA/LEVODOPA 25-100 MG TABLET PO SCH ×2 (09:57→14:39)
[2017-06-02] MEDS: PANTOPRAZOLE 40 MG TABLET PO SCH (09:58)
--- NOTE | 2017-06-02 12:12 | Cardiology Progress Note ---
Assessment and Plan (1) Chest pain Status: Acute Assessment and plan: The patient's symptoms have resolved. She is feeling well today. I think this was a combination of poor hypertension control and volume overload. This is improved with adjustment in medication and volume removal by dialysis. From my standpoint she could be discharged home. Current Visit: Yes (2) CHF (congestive heart failure) Status: Chronic Assessment and plan: This is clinically improved after volume removal via dialysis. Current Visit: Yes (3) Diabetes mellitus Status: Chronic Current Visit: Yes Qualifiers: Diabetes mellitus type: type 2 (4) End-stage renal disease on hemodialysis Status: Chronic Current Visit: Yes (5) Hypertension Status: Chronic Assessment and plan: I am going to make an adjustment in her antihypertensive regimen today. Current Visit: Yes Cardiology - PN: Subj Interval history: The patient is feeling much better today. She is not having any chest pain or dyspnea. She is lying flat in the bed without distress. She is asking if she could go home. Her cardiac catheterization yesterday did not show any significant obstructive disease in need of revascularization. Her groin shows no problems or complications from catheterization. I am going to make a bit more adjustment in her antihypertensive regimen to try to improve this but otherwise I think she could go home for outpatient management. Current Medications Hydrocodone Bitart/Acetaminophen ([place] 7.5-325) 1 tablet PO Q6H PRN PRN Reason: Pain Last Admin: 06/02/17 05:00 Dose: 1 tablet Carbidopa/Levodopa (Sinemet 25-100) 1 tablet PO TID [facility] Last Admin: 06/02/17 09:57 Dose: 1 tablet Carvedilol (Coreg) 12.5 mg PO BID [facility] Last Admin: 06/02/17 09:56 Dose: 12.5 mg Cinacalcet (Sensipar) 90 mg PO QAM [facility] Last Admin: 06/02/17 09:56 Dose: 90 mg Dextrose/Water (D50) 25 gm IV PRN PRN PRN Reason: Hypoglycemia with IV access Docusate Sodium (Colace Cap) 100 mg PO BID PRN PRN Reason: Constipation Glucagon () 1 mg IM PRN PRN PRN Reason: Hypoglycemia w/o IV access Potassium Chloride 10 meq/ (Premix) 100 mls @ 100 mls/hr IV Q1H PRN PRN Reason: Potassium less than 3.5 Stop: 06/03/17 15:19 Magnesium Sulfate 2 gm/ Premix 50 mls @ 25 mls/hr IV ONCE PRN PRN Reason: Magnesium less than 1.8 Stop: 06/03/17 15:19 Insulin Human Lispro (Humalog) 0 unit SUBCUT ACHS LILLY PRN Reason: Protocol Last Admin: 06/02/17 09:55 Dose: Not Given Lactulose (Chronulac) 20 gm PO Q4H PRN PRN Reason: Constipation Nifedipine (Procardia Xl) 30 mg PO BEDTIME [facility] Last Admin: 06/01/17 20:16 Dose: 30 mg Ondansetron HCl (Zofran Inj) 4 mg IV Q4H PRN PRN Reason: Nausea Pantoprazole Sodium (Protonix Tab) 40 mg PO DAILY [facility] Last Admin: 06/02/17 09:58 Dose: 40 mg Sevelamer Carbonate (Renvela Tab) 800 mg PO TID W/MEALS [facility] Last Admin: 06/02/17 09:56 Dose: 800 mg Exam (Progress Note) - Constitutional Vitals: Period Temp Pulse Resp BP Sys/Lewis Pulse Ox Last 24 Hr 97.6 F-98.6 F 67-75 14-20 148-197/69-96 94-100 Exam: General: Present: Appears Well, No Apparent Distress HEENT: Present: PERRL, Mucus Membranes Moist Neck: Present: Supple Neck, Midline Trachea, No Bruit Cardiac: Present: Reg Rate and Rhythm, Systolic Murmur Lungs: Present: Normal Breath Sounds, No Wheeze, Rales, Rhonchi Neuro: Absent: Resting Tremor, Essential Tremor Abdomen: Present: Soft, Active Bowel Sounds Skin: Absent: Rash, Suspicious Lesions Gait: Present: Poor Gait Extremities: Present: Normal Upper Extr. Pulses, Normal Lower Extr. Pulses, Edema (Edema to left lower extremity), Other (Dialysis access to left thigh). Absent: Normal Gait Result/EKG - Labs CBC & BMP: 06/02/17 04:53 06/02/17 04:53 Lab Results: I have reviewed the past 24 hour labs Labs: Laboratory Results - last 24 hr 06/01/17 06/01/17 06/01/17 11:51 11:51 11:51 WBC RBC Hgb Hct MCV MCH MCHC RDW Plt Count MPV Neut % (Auto) Lymph % (Auto) [place] % (Auto) Eos % (Auto) Baso % (Auto) Neut # (Auto) Lymph # (Auto) [place] # (Auto) Eos # (Auto) Baso # (Auto) Immature Gran % Nucleated RBC % Immature Gran # Nucleated RBCs # Immature Plt Fraction Sodium Potassium Chloride Carbon Dioxide Anion Gap BUN Creatinine GFR Calculation BUN/Creatinine Ratio Glucose POC Glucose Hemoglobin A1c 8.4 H Calculated Osmolality Calcium Magnesium Triglycerides Cholesterol LDL Cholesterol VLDL Cholesterol HDL Cholesterol Heart Disease Risk Ratio Free T4 1.36 TSH 3rd Generation 2.880 06/01/17 06/02/17 06/02/17 20:08 04:53 04:53 WBC 3.5 L RBC 3.30 L Hgb 9.1 L Hct 29.0 L MCV 87.9 MCH 28 MCHC 31.4 L RDW 15.6 Plt Count 187 MPV 11.4 Neut % (Auto) 59.4 Lymph % (Auto) 25.2 [place] % (Auto) 12.2 Eos % (Auto) 2.3 Baso % (Auto) 0.6 Neut # (Auto) 2.1 Lymph # (Auto) 0.9 L [place] # (Auto) 0.4 Eos # (Auto) 0.1 Baso # (Auto) 0.0 Immature Gran % 0.3 Nucleated RBC % 0.0 Immature Gran # 0.01 Nucleated RBCs # 0.00 Immature Plt Fraction 0.0 Sodium 138 Potassium 4.0 Chloride 101 Carbon Dioxide 27 Anion Gap 14.0 BUN 26 H Creatinine 6.70 H GFR Calculation 7 BUN/Creatinine Ratio 3.00 L Glucose 133 H POC Glucose 159 H Hemoglobin A1c Calculated Osmolality 281.7 Calcium 7.6 L Magnesium 2.3 Triglycerides 397 H Cholesterol 211 H LDL Cholesterol 123.0 VLDL Cholesterol 79.4 HDL Cholesterol 34 L Heart Disease Risk Ratio 6.21 Free T4 TSH 3rd Generation 06/02/17 06/02/17 07:14 12:00 WBC RBC Hgb Hct MCV MCH MCHC RDW Plt Count MPV Neut % (Auto) Lymph % (Auto) [place] % (Auto) Eos % (Auto) Baso % (Auto) Neut # (Auto) Lymph # (Auto) [place] # (Auto) Eos # (Auto) Baso # (Auto) Immature Gran % Nucleated RBC % Immature Gran # Nucleated RBCs # Immature Plt Fraction Sodium Potassium Chloride Carbon Dioxide Anion Gap BUN Creatinine GFR Calculation BUN/Creatinine Ratio Glucose POC Glucose 142 H 143 H Hemoglobin A1c Calculated Osmolality Calcium Magnesium Triglycerides Cholesterol LDL Cholesterol VLDL Cholesterol HDL Cholesterol Heart Disease Risk Ratio Free T4 TSH 3rd Generation - EKG EKG results: interpreted by me
--- NOTE | 2017-06-02 13:10 | Order Completion Report ---
See report scanned to EMR
--- NOTE | 2017-06-02 13:49 | Discharge Summary ---
Hospital Course - Hospital Course Hospital Course: Patient was admitted for acute chest pain. Her initial troponin was normal. Her EKG did show TWI in inferior leads. Patient was seen by cardiology and there was a concern for possible ACS. She underwent left heart catherization, and it showed diffuse mild to moderate disease. No intervention was needed. Her blood pressure medications were adjusted. Patient also has ESRD and required HD on day of admission and day of discharge. It was thought that patient's chest pain was a combination of uncontrolled HTN and volume overload. On admission, her BNP was 883 and chest x-ray showed volume overload. Patient will be discharged on coreg, adalat, which will replace her naldol/labetalol/norvasc/clonidine. She will need to follow up with her PCM as well as with the dialysis clinic on Sunday. She is hemodynamically and clinically stable. She is safe for discharge. Discharge Plan - Discharge Data Condition at Discharge: Stable Discharge Diet: diabetic diet Activity: resume usual activities as tolerated - Discharge Medications New NIFEdipine XL TAB [Procardia Xl] 30 mg PO BEDTIME #30 tablet Simvastatin [Zocor] 40 mg PO BEDTIME #30 tablet Carvedilol [Coreg] 25 mg PO BID W/MEALS #60 tablet Continue hydrALAZINE TAB [Apresoline Tab] 50 mg PO TID HYDROcodone/ACETAMIN 7.5-325 [[place] 7.5-325] 1 tablet PO Q6H PRN #20 tablet PRN Reason: Pain Sevelamer Carbonate Tab [Renvela Tab] 800 mg PO TID W/MEALS Cinacalcet HCl [Sensipar] 90 mg PO QAM Insulin Degludec [Tresiba Flextouch U-100] 10 units SUBCUT BEDTIME Carbidopa/Levodopa 25-100 [Sinemet 25-100] 1 tablet PO TID Discontinued Labetalol Tab [Trandate Tab] 300 mg PO BID cloNIDine TAB [Catapres Tab] 0.3 mg PO TID Nadolol [Nadolol] 40 mg PO BID amLODIPine [Norvasc] 10 mg PO QAM - Follow Up or Referral - Forms/Instructions Additional Discharge Instructions: follow up with your main doctor in 1-2 weeks. follow up at the dialysis center on Sunday Exam - Constitutional Vitals: Period Temp Pulse Resp BP Sys/Lewis Pulse Ox Last 24 Hr 97.6 F-98.6 F 67-75 14-20 148-197/69-96 94-100 General appearance: no acute distress - Head Head exam: Present: normal inspection - Eye Eye exam: Present: EOMI Pupils: Present: MAYITO - Respiratory Respiratory exam: Present: clear to auscultation bilaterally. Absent: rales, rhonchi, wheezes - Cardiovascular Cardiovascular exam: Present: regular rate and rhythm - GI/Abdominal GI/Abdominal exam: Present: normal bowel sounds, soft. Absent: distended, tenderness, rebound - Extremities Exam Extremities exam: Absent: edema - Neurological Exam Neurological exam: Present: alert, oriented X3 - Psychiatric Psychiatric exam: Present: normal affect, normal mood - Skin Skin exam: Present: normal color, warm Discharge Results Procedures and tests throughout hospitalization: Pending Orders 06/01/17 15:44 CL heart Routine 06/03/17 04:00 Basic Metabolic Panel IN AM Comp Blood Count Auto Diff IN AM 06/04/17 04:00 Basic Metabolic Panel IN AM Comp Blood Count Auto Diff IN AM Labs on day of discharge: Labs from last 24 hours 06/02/17 06/02/17 06/02/17 12:00 07:14 04:53 WBC RBC Hgb Hct MCV MCH MCHC RDW Plt Count MPV Neut % (Auto) Lymph % (Auto) [place] % (Auto) Eos % (Auto) Baso % (Auto) Neut # (Auto) Lymph # (Auto) [place] # (Auto) Eos # (Auto) Baso # (Auto) Immature Gran % Nucleated RBC % Immature Gran # Nucleated RBCs # Immature Plt Fraction Sodium 138 Potassium 4.0 Chloride 101 Carbon Dioxide 27 Anion Gap 14.0 BUN 26 H Creatinine 6.70 H GFR Calculation 7 BUN/Creatinine Ratio 3.00 L Glucose 133 H POC Glucose 143 H 142 H Calculated Osmolality 281.7 Calcium 7.6 L Magnesium 2.3 Triglycerides 397 H Cholesterol 211 H LDL Cholesterol 123.0 VLDL Cholesterol 79.4 HDL Cholesterol 34 L Heart Disease Risk Ratio 6.21 06/02/17 06/01/17 04:53 20:08 WBC 3.5 L RBC 3.30 L Hgb 9.1 L Hct 29.0 L MCV 87.9 MCH 28 MCHC 31.4 L RDW 15.6 Plt Count 187 MPV 11.4 Neut % (Auto) 59.4 Lymph % (Auto) 25.2 [place] % (Auto) 12.2 Eos % (Auto) 2.3 Baso % (Auto) 0.6 Neut # (Auto) 2.1 Lymph # (Auto) 0.9 L [place] # (Auto) 0.4 Eos # (Auto) 0.1 Baso # (Auto) 0.0 Immature Gran % 0.3 Nucleated RBC % 0.0 Immature Gran # 0.01 Nucleated RBCs # 0.00 Immature Plt Fraction 0.0 Sodium Potassium Chloride Carbon Dioxide Anion Gap BUN Creatinine GFR Calculation BUN/Creatinine Ratio Glucose POC Glucose 159 H Calculated Osmolality Calcium Magnesium Triglycerides Cholesterol LDL Cholesterol VLDL Cholesterol HDL Cholesterol Heart Disease Risk Ratio - Impressions 1. Acute chest pain, LHC negative for obstructive CAD. Echo pending. Chest pain likely 2nd to hypertensive crises and volume overload. Chest pain has resolved. She will be discharged on coreg and adalat. Her PCM can make further adjustments in her bp regimen. 2. Hypertensive crises: blood pressure upon admission was 232/113. It improved with HD. She will be discharged on adalat/coreg in addition to home hydralazine. Her clonidine/naldol/labetalol/norvasc can be discontinued. She will need to follow up with her PCM. She will likely benefit from an tanner- inhibitor given history of DM. 3. h/o ESRD: s/p HD x 2 sessions. She will need to follow up with HD at her outpatient dialysis center. 4. h/o DM will control sugars with insulin regimen 5. Volume overload: resolved. Was symptomatic with elevated BNP in the setting of ESRD. Cxray showed cardiomegaly with mild to moderate small pleural effusions. Echo pending. 6. Dyslipidemia: will discharge on zocor; f/u lipids/lfts with PCM DS: Provider Date of admission: 06/01/17 09:15 Primary care physician: SONIDO Ma Attending physician on admission: Xenia Antony MD Consults: 06/01/17 10:29 Consult to Physician [CONS] Routine Comment: dialysis patient Consulting Provider: Gilberto Jerome Jr. Person Notified: Dr Jerome Date Notified: 06/01/17 Time Notified: 12:21 06/01/17 10:33 Consult to Physician [CONS] Routine Comment: CHF Consulting Provider: Cardiology - [facility] Person Notified: WENDY Date Notified: 06/01/17 Time Notified: 11:44 06/01/17 11:18 Consult to Pastoral Services [CONS] Routine Comment: Pastoral Screen: Request Unemployment Examiner Visit Discharging clinician: Xenia Antony MD
[2017-06-02 15:56] VITALS: BP 155/73
[2017-06-02] MEDS ORDERED: CARVEDILOL 25 MG TABLET PO SCH (17:00)
--- NOTE | 2017-06-06 21:44 | Order Completion Report ---
See report scanned to EMR
== END 2017-06-02 16:34 | disposition home or self-care (01) | DRG 286 ==
LOC: EDUNIT# → EDBD → N.ED 07:11 → N.EDINP 09:15 → N.5E 10:46
PROVIDERS: ADMIT Internal Medicine; ATTEND Internal Medicine
PROC: CLCCHCL (ICD-10-PCS; 2017-06-01 16:45)

== ENCOUNTER 2018-02-13 16:36 | Inpatient (IN) ==
[2018-02-13] MEDS ORDERED: ONDANSETRON 4 MG/2 ML VIAL IV PRN (20:00)
[2018-02-13] MEDS ORDERED: MORPHINE 4 MG/1 ML VIAL IV PRN (20:00)
[2018-02-13] MEDS ORDERED: DEXTROSE 50% 25 GM/50 ML VIAL IV PRN (20:19)
[2018-02-13] MEDS ORDERED: GLUCAGON 1 MG VIAL IM PRN (20:19)
[2018-02-13] MEDS ORDERED: ENOXAPARIN 60 MG/0.6 ML SYRINGE SUBCUT SCH (21:00)
[2018-02-13 21:25] LABS: Eosinophils # 0.1 10*3/uL (0.0-0.87); Eosinophils % 2.4 % (0.00-10.9); Hematocrit 32.3 VOL% (35.7-47.0); Hemoglobin 9.5 GM/DL (12.0-16.0); Lymphocytes # 1.1 10*3/uL (1.4-4.0); Lymphocytes % 27.8 % (21.3-54.2); Mean Corpuscular HGB Conc 29.4 GM/DL (32-36); Mean Corpuscular Hemoglobin 26 PG (27-34); Mean Platelet Volume 10.7 FL (9.6-12.0); Monocytes # 0.5 10*3/uL (0.11-0.8); Monocytes % 11.8 % (1.7-12.7); Neutrophils # 2.2 10*3/uL (1.4-7.4); Platelet Count 138 T/CUMM (130-400); Red Blood Count 3.67 MC/CUMM (3.8-5.5); Red Cell Distribution Width 16.6 % (9.3-17.3); White Blood Count 3.8 T/CUMM (4-12)
[2018-02-13 21:32] LABS: PT Patient Result 10.7 SECS; Partial Thromboplastin Time 27.1 SECS (0-40)
[2018-02-13 21:53] LABS: Albumin 3.4 G/DL (3.4-5.0); Bilirubin,Total 0.5 MG/DL (0.2-1.0); Calcium 8.2 MG/DL (8.5-10.1); Osmolality,Calculated 284.3 MOS/KG (273-304); Potassium 3.9 MMOL/L (3.5-5.1); Total Protein 8.1 G/DL (6.4-8.3)
[2018-02-13] MEDS: LABETALOL 200 MG TABLET PO SCH (21:54)
[2018-02-13] MEDS: DOCUSATE SODIUM 100 MG CAPSULE PO SCH (21:55)
[2018-02-13] MEDS: INSULIN REGULAR 100 UNIT/ML SUBCUT SCH (21:57)
[2018-02-13] MEDS ORDERED: WARFARIN 5 MG TABLET PO SCH (22:00)
[2018-02-14] MEDS: INSULIN REGULAR 100 UNIT/ML SUBCUT SCH ×4 (08:23→22:27)
[2018-02-14] MEDS: amLODIPine 10 MG TABLET PO SCH (08:24)
[2018-02-14] MEDS: LABETALOL 200 MG TABLET PO SCH ×2 (08:24→22:29)
[2018-02-14] MEDS: PANTOPRAZOLE 40 MG TABLET PO SCH (08:24)
[2018-02-14] MEDS: DOCUSATE SODIUM 100 MG CAPSULE PO SCH ×2 (08:24→22:30)
[2018-02-14] MEDS ORDERED: LISINOPRIL 20 MG TABLET PO SCH (09:00)
[2018-02-14] MEDS: WARFARIN 10 MG TABLET PO SCH (17:08)
[2018-02-14] MEDS: INSULIN GLARGINE 100 UNIT/ML SUBCUT SCH (22:28)
[2018-02-14] MEDS: LISINOPRIL 20 MG TABLET PO SCH (22:29)
[2018-02-14] MEDS: ENOXAPARIN 60 MG/0.6 ML SYRINGE SUBCUT SCH (22:30)
[2018-02-15 05:35] LABS: Basophils % 1.1 % (0.0-0.8); Eosinophils # 0.1 10*3/uL (0.0-0.87); Eosinophils % 2.1 % (0.00-10.9); Hematocrit 30.3 VOL% (35.7-47.0); Hemoglobin 9.1 GM/DL (12.0-16.0); Immature Granulocytes % 0.5 %; Immature Granulocytes Absolute 0.02 #; Lymphocytes % 26.7 % (21.3-54.2); Mean Corpuscular Hemoglobin 27 PG (27-34); Mean Corpuscular Volume 89.4 FL (87-102); Mean Platelet Volume 11.1 FL (9.6-12.0); Monocytes # 0.5 10*3/uL (0.11-0.8); Monocytes % 12.4 % (1.7-12.7); Neutrophils # 2.2 10*3/uL (1.4-7.4); Neutrophils % 57.2 % (38.7-73.9); Platelet Count 127 T/CUMM (130-400); Red Blood Count 3.39 MC/CUMM (3.8-5.5); Red Cell Distribution Width 16.3 % (9.3-17.3); White Blood Count 3.8 T/CUMM (4-12)
[2018-02-15 05:44] LABS: PT Patient Result 10.7 SECS
[2018-02-15 06:21] LABS: Osmolality,Calculated 285.8 MOS/KG (273-304); Potassium 4.6 MMOL/L (3.5-5.1)
[2018-02-15] MEDS: PANTOPRAZOLE 40 MG TABLET PO SCH (08:22)
[2018-02-15] MEDS: LABETALOL 200 MG TABLET PO SCH ×2 (08:22→21:25)
[2018-02-15] MEDS: LISINOPRIL 20 MG TABLET PO SCH ×2 (08:23→21:24)
[2018-02-15] MEDS: amLODIPine 10 MG TABLET PO SCH (08:23)
[2018-02-15] MEDS: DOCUSATE SODIUM 100 MG CAPSULE PO SCH ×2 (08:24→21:25)
[2018-02-15] MEDS: INSULIN REGULAR 100 UNIT/ML SUBCUT SCH ×4 (08:24→21:33)
[2018-02-15] MEDS: WARFARIN 10 MG TABLET PO SCH (17:19)
[2018-02-15] MEDS: ENOXAPARIN 60 MG/0.6 ML SYRINGE SUBCUT SCH (21:24)
[2018-02-15] MEDS: INSULIN GLARGINE 100 UNIT/ML SUBCUT SCH (21:32)
[2018-02-16 05:32] LABS: Basophils % 0.8 % (0.0-0.8); Eosinophils # 0.1 10*3/uL (0.0-0.87); Eosinophils % 1.8 % (0.00-10.9); Hematocrit 30.9 VOL% (35.7-47.0); Hemoglobin 9.5 GM/DL (12.0-16.0); Immature Granulocytes % 0.3 %; Immature Granulocytes Absolute 0.01 #; Lymphocytes # 0.8 10*3/uL (1.4-4.0); Lymphocytes % 21.1 % (21.3-54.2); Mean Corpuscular HGB Conc 30.7 GM/DL (32-36); Mean Corpuscular Hemoglobin 27 PG (27-34); Mean Corpuscular Volume 86.3 FL (87-102); Mean Platelet Volume 11.5 FL (9.6-12.0); Monocytes # 0.5 10*3/uL (0.11-0.8); Monocytes % 13.5 % (1.7-12.7); Neutrophils # 2.4 10*3/uL (1.4-7.4); Neutrophils % 62.5 % (38.7-73.9); Platelet Count 140 T/CUMM (130-400); Red Blood Count 3.58 MC/CUMM (3.8-5.5); Red Cell Distribution Width 16.4 % (9.3-17.3); White Blood Count 3.8 T/CUMM (4-12)
[2018-02-16 05:48] LABS: Calcium 8.8 MG/DL (8.5-10.1); Potassium 3.9 MMOL/L (3.5-5.1)
[2018-02-16 06:00] LABS: INR 1.3; PT Patient Result 13.1 SECS
[2018-02-16] MEDS: PANTOPRAZOLE 40 MG TABLET PO SCH (09:03)
[2018-02-16] MEDS: DOCUSATE SODIUM 100 MG CAPSULE PO SCH ×2 (09:03→21:37)
[2018-02-16] MEDS: amLODIPine 10 MG TABLET PO SCH (09:03)
[2018-02-16] MEDS: LISINOPRIL 20 MG TABLET PO SCH ×2 (09:03→21:38)
[2018-02-16] MEDS: INSULIN REGULAR 100 UNIT/ML SUBCUT SCH ×4 (09:04→21:40)
[2018-02-16] MEDS: LABETALOL 200 MG TABLET PO SCH ×2 (09:04→21:36)
[2018-02-16] MEDS: WARFARIN 10 MG TABLET PO SCH (18:57)
[2018-02-16] MEDS: ENOXAPARIN 60 MG/0.6 ML SYRINGE SUBCUT SCH (21:35)
[2018-02-16] MEDS: INSULIN GLARGINE 100 UNIT/ML SUBCUT SCH (21:40)
[2018-02-17 07:38] LABS: INR 2.6
[2018-02-17 07:46] LABS: PT Patient Result 26.8 SECS
[2018-02-17 07:51] LABS: Calcium 9.1 MG/DL (8.5-10.1); Potassium 4.9 MMOL/L (3.5-5.1)
[2018-02-17 08:04] LABS: Basophils % 1.1 % (0.0-0.8); Eosinophils # 0.1 10*3/uL (0.0-0.87); Eosinophils % 3.3 % (0.00-10.9); Hematocrit 32.7 VOL% (35.7-47.0); Hemoglobin 10.4 GM/DL (12.0-16.0); Immature Granulocytes % 0.4 %; Immature Granulocytes Absolute 0.01 #; Lymphocytes # 0.8 10*3/uL (1.4-4.0); Lymphocytes % 29.6 % (21.3-54.2); Mean Corpuscular HGB Conc 31.8 GM/DL (32-36); Mean Corpuscular Hemoglobin 27 PG (27-34); Mean Corpuscular Volume 86.3 FL (87-102); Mean Platelet Volume 11.2 FL (9.6-12.0); Monocytes # 0.4 10*3/uL (0.11-0.8); Monocytes % 16.1 % (1.7-12.7); Neutrophils # 1.4 10*3/uL (1.4-7.4); Neutrophils % 49.5 % (38.7-73.9); Platelet Count 140 T/CUMM (130-400); Red Blood Count 3.79 MC/CUMM (3.8-5.5); Red Cell Distribution Width 16.3 % (9.3-17.3); White Blood Count 2.7 T/CUMM (4-12)
[2018-02-17 08:33] LABS: Anisocytosis 1+; Eosinophils 9 % (0-10); Hypochromasia 1+; Lymphocytes 28 % (20-55); Microcytosis 1+; Segmented Neutrophils 50 % (50-85); Total Cells Counted 100
[2018-02-17 08:34] LABS: Ovalocytes Slight; Platelet Estimate Adequate
[2018-02-17] MEDS: INSULIN REGULAR 100 UNIT/ML SUBCUT SCH ×4 (10:20→21:15)
[2018-02-17] MEDS: amLODIPine 10 MG TABLET PO SCH (10:20)
[2018-02-17] MEDS: LABETALOL 200 MG TABLET PO SCH ×2 (10:20→21:16)
[2018-02-17] MEDS: PANTOPRAZOLE 40 MG TABLET PO SCH (10:20)
[2018-02-17] MEDS: DOCUSATE SODIUM 100 MG CAPSULE PO SCH ×2 (10:20→21:17)
[2018-02-17] MEDS: LISINOPRIL 20 MG TABLET PO SCH ×2 (10:20→21:17)
[2018-02-17] MEDS ORDERED: WARFARIN 5 MG TABLET PO SCH (18:00)
[2018-02-17] MEDS: ENOXAPARIN 60 MG/0.6 ML SYRINGE SUBCUT SCH (21:15)
[2018-02-17] MEDS: INSULIN GLARGINE 100 UNIT/ML SUBCUT SCH (21:16)
[2018-02-18 05:43] LABS: Basophils % 0.6 % (0.0-0.8); Eosinophils # 0.1 10*3/uL (0.0-0.87); Eosinophils % 2.3 % (0.00-10.9); Hemoglobin 9.7 GM/DL (12.0-16.0); Immature Granulocytes % 0.3 %; Immature Granulocytes Absolute 0.01 #; Lymphocytes % 27.6 % (21.3-54.2); Mean Corpuscular HGB Conc 29.4 GM/DL (32-36); Mean Corpuscular Hemoglobin 26 PG (27-34); Mean Corpuscular Volume 89.4 FL (87-102); Mean Platelet Volume 11.3 FL (9.6-12.0); Monocytes # 0.5 10*3/uL (0.11-0.8); Monocytes % 14.7 % (1.7-12.7); Neutrophils # 1.9 10*3/uL (1.4-7.4); Neutrophils % 54.5 % (38.7-73.9); Platelet Count 139 T/CUMM (130-400); Red Blood Count 3.69 MC/CUMM (3.8-5.5); Red Cell Distribution Width 16.1 % (9.3-17.3); White Blood Count 3.5 T/CUMM (4-12)
[2018-02-18 05:54] LABS: INR 4.8
[2018-02-18 05:55] LABS: PT Patient Result 47.4 SECS
[2018-02-18 05:58] LABS: Calcium 8.6 MG/DL (8.5-10.1); Potassium 4.9 MMOL/L (3.5-5.1)
[2018-02-18] MEDS: INSULIN REGULAR 100 UNIT/ML SUBCUT SCH ×4 (08:34→21:00)
[2018-02-18] MEDS: amLODIPine 10 MG TABLET PO SCH (08:35)
[2018-02-18] MEDS: LABETALOL 200 MG TABLET PO SCH ×2 (08:35→20:53)
[2018-02-18] MEDS: PANTOPRAZOLE 40 MG TABLET PO SCH (08:36)
[2018-02-18] MEDS: DOCUSATE SODIUM 100 MG CAPSULE PO SCH ×2 (08:36→20:52)
[2018-02-18] MEDS: LISINOPRIL 20 MG TABLET PO SCH ×2 (08:36→20:52)
[2018-02-18] MEDS: INSULIN GLARGINE 100 UNIT/ML SUBCUT SCH (21:00)
[2018-02-19 06:53] LABS: INR 4.4
[2018-02-19 06:59] LABS: PT Patient Result 43.9 SECS
[2018-02-19 07:04] LABS: Calcium 9.4 MG/DL (8.5-10.1); Osmolality,Calculated 277.8 MOS/KG (273-304); Potassium 5.5 MMOL/L (3.5-5.1)
[2018-02-19] MEDS: INSULIN REGULAR 100 UNIT/ML SUBCUT SCH ×4 (07:34→20:52)
[2018-02-19] MEDS: LABETALOL 200 MG TABLET PO SCH ×2 (08:41→21:06)
[2018-02-19] MEDS: amLODIPine 10 MG TABLET PO SCH (08:41)
[2018-02-19] MEDS: PANTOPRAZOLE 40 MG TABLET PO SCH (08:41)
[2018-02-19] MEDS: DOCUSATE SODIUM 100 MG CAPSULE PO SCH ×2 (08:41→21:06)
[2018-02-19] MEDS: LISINOPRIL 20 MG TABLET PO SCH ×2 (08:41→21:06)
[2018-02-19] MEDS: INSULIN GLARGINE 100 UNIT/ML SUBCUT SCH (21:06)
[2018-02-20 05:47] LABS: Basophils % 0.5 % (0.0-0.8); Eosinophils # 0.1 10*3/uL (0.0-0.87); Eosinophils % 2.3 % (0.00-10.9); Hematocrit 30.3 VOL% (35.7-47.0); Hemoglobin 9.1 GM/DL (12.0-16.0); Immature Granulocytes % 0.3 %; Immature Granulocytes Absolute 0.01 #; Lymphocytes # 0.9 10*3/uL (1.4-4.0); Lymphocytes % 23.4 % (21.3-54.2); Mean Corpuscular Hemoglobin 26 PG (27-34); Mean Corpuscular Volume 87.8 FL (87-102); Mean Platelet Volume 11.5 FL (9.6-12.0); Monocytes # 0.5 10*3/uL (0.11-0.8); Monocytes % 13.9 % (1.7-12.7); Neutrophils # 2.3 10*3/uL (1.4-7.4); Neutrophils % 59.6 % (38.7-73.9); Platelet Count 142 T/CUMM (130-400); Red Blood Count 3.45 MC/CUMM (3.8-5.5); Red Cell Distribution Width 16.1 % (9.3-17.3); White Blood Count 3.9 T/CUMM (4-12)
[2018-02-20 06:01] LABS: INR 2.6
[2018-02-20 06:06] LABS: PT Patient Result 26.8 SECS
[2018-02-20 06:08] LABS: Calcium 8.7 MG/DL (8.5-10.1); Potassium 5.2 MMOL/L (3.5-5.1)
[2018-02-20] MEDS: DOCUSATE SODIUM 100 MG CAPSULE PO SCH (08:56)
[2018-02-20] MEDS: LABETALOL 200 MG TABLET PO SCH (08:56)
[2018-02-20] MEDS: PANTOPRAZOLE 40 MG TABLET PO SCH (08:56)
[2018-02-20] MEDS: LISINOPRIL 20 MG TABLET PO SCH (08:56)
[2018-02-20] MEDS: amLODIPine 10 MG TABLET PO SCH (08:56)
[2018-02-20] MEDS: INSULIN REGULAR 100 UNIT/ML SUBCUT SCH ×2 (08:57→11:54)
[2018-02-20 13:43] VITALS: BP 130/59
== END 2018-02-20 16:06 | disposition home health service (06) | DRG 299 ==
LOC: N.2E 17:34 → SUATTDRO 17:34
PROVIDERS: ADMIT Internal Medicine; ATTEND Internal Medicine

== ENCOUNTER 2018-03-26 19:57 | Inpatient (IN) ==
[2018-03-26] MEDS ORDERED: NITROGLYCERIN DRIP 50 MG/250 ML BOTTLE IV SCH (21:00)
[2018-03-26] MEDS ORDERED: MORPHINE 10 MG/1 ML VIAL IV STA (21:01)
[2018-03-26] MEDS ORDERED: ONDANSETRON 4 MG/2 ML VIAL IV STA (21:01)
[2018-03-26] MEDS ORDERED: SODIUM POLYSTYRENE SULFATE 15 GM/60 ML BOTTLE PO ONE (22:24)
[2018-03-26] MEDS ORDERED: INSULIN REGULAR 100 UNIT/ML SUBCUT ONE (22:24)
[2018-03-26] MEDS ORDERED: CALCIUM GLUCONATE 2,000 MG in SODIUM CHLORIDE 0.9% 100 ML IV ONE (22:27)
[2018-03-26] MEDS ORDERED: hydrALAZINE 20 MG/1 ML VIAL IV PRN (22:34)
[2018-03-26] MEDS ORDERED: FUROSEMIDE 40 MG/4 ML VIAL IV ONE (22:35)
[2018-03-26] MEDS ORDERED: GLUCAGON 1 MG VIAL IM PRN (22:35)
[2018-03-26] MEDS ORDERED: DEXTROSE 50% 25 GM/50 ML VIAL IV PRN (22:35)
[2018-03-26] MEDS ORDERED: CALCIUM GLUCONATE 1,000 MG/10 ML VIAL IV ONE (23:33)
[2018-03-27 00:12] LABS: Risk Ratio 3.19; Thyroid Stimulating Hormone 2.64 uIU/ml (0.358-3.74)
[2018-03-27] MEDS ORDERED: ENOXAPARIN 60 MG/0.6 ML SYRINGE SUBCUT SCH (00:30)
[2018-03-27 01:22] LABS: Calcium 7.6 MG/DL (8.5-10.1); Osmolality,Calculated 285.5 MOS/KG (273-304)
[2018-03-27 01:32] LABS: Potassium 7.1 MMOL/L (3.5-5.1)
[2018-03-27] MEDS: LABETALOL 100 MG TABLET PO SCH ×3 (02:25→21:58)
[2018-03-27] MEDS: ONDANSETRON 4 MG/2 ML VIAL IV PRN ×2 (02:27→08:00)
[2018-03-27 02:33] LABS: Calcium 8.6 MG/DL (8.5-10.1); Osmolality,Calculated 284.4 MOS/KG (273-304)
[2018-03-27] MEDS: ENOXAPARIN 60 MG/0.6 ML SYRINGE SUBCUT SCH (02:44)
[2018-03-27] MEDS: INSULIN LISPRO 100 UNIT/ML SUBCUT SCH ×6 (02:48→22:04)
[2018-03-27] MEDS ORDERED: SODIUM POLYSTYRENE SULFATE 15 GM/60 ML BOTTLE PO ONE (02:57)
[2018-03-27 06:38] LABS: Basophils % 0.3 % (0.0-0.8); Eosinophils # 0.1 10*3/uL (0.0-0.87); Eosinophils % 0.8 % (0.00-10.9); Hematocrit 28.3 VOL% (35.7-47.0); Hemoglobin 8.2 GM/DL (12.0-16.0); Immature Granulocytes % 0.5 %; Immature Granulocytes Absolute 0.03 #; Lymphocytes # 0.6 10*3/uL (1.4-4.0); Lymphocytes % 9.5 % (21.3-54.2); Mean Corpuscular Hemoglobin 26 PG (27-34); Mean Platelet Volume 10.9 FL (9.6-12.0); Monocytes # 0.4 10*3/uL (0.11-0.8); Monocytes % 6.8 % (1.7-12.7); Neutrophils % 82.1 % (38.7-73.9); Platelet Count 162 T/CUMM (130-400); Red Blood Count 3.18 MC/CUMM (3.8-5.5); Red Cell Distribution Width 16.7 % (9.3-17.3)
[2018-03-27 06:47] LABS: INR 1.1; PT Patient Result 11.6 SECS
[2018-03-27 07:04] LABS: Calcium 8.5 MG/DL (8.5-10.1); Osmolality,Calculated 285.5 MOS/KG (273-304)
[2018-03-27 07:11] LABS: Potassium 6.2 MMOL/L (3.5-5.1)
[2018-03-27] MEDS ORDERED: VALSARTAN 320 MG PO SCH (09:00)
[2018-03-27] MEDS: ASPIRIN 325 MG TABLET PO SCH (09:55)
[2018-03-27] MEDS: PANTOPRAZOLE 40 MG TABLET PO SCH (09:55)
[2018-03-27] MEDS: amLODIPine 10 MG TABLET PO SCH (09:55)
[2018-03-27] MEDS: INSULIN GLARGINE 100 UNIT/ML SUBCUT SCH (09:56)
[2018-03-27] MEDS: VALSARTAN 160 MG TABLET PO SCH (15:58)
[2018-03-27] MEDS: WARFARIN 5 MG TABLET PO SCH (18:18)
[2018-03-27] MEDS: TRAVOPROST 0.004% OPH SOLN 2.5 ML BOTTLE BOTH EYES SCH (21:59)
[2018-03-28] MEDS: INSULIN LISPRO 100 UNIT/ML SUBCUT SCH ×5 (02:40→17:14)
[2018-03-28] MEDS: ENOXAPARIN 60 MG/0.6 ML SYRINGE SUBCUT SCH (02:40)
[2018-03-28 06:45] LABS: Calcium 8.3 MG/DL (8.5-10.1); Osmolality,Calculated 283.5 MOS/KG (273-304); Potassium 5.4 MMOL/L (3.5-5.1)
[2018-03-28 06:50] LABS: INR 1.3; PT Patient Result 13.3 SECS
[2018-03-28 06:53] LABS: Basophils % 0.7 % (0.0-0.8); Eosinophils # 0.1 10*3/uL (0.0-0.87); Eosinophils % 2.3 % (0.00-10.9); Hematocrit 26.7 VOL% (35.7-47.0); Hemoglobin 7.9 GM/DL (12.0-16.0); Immature Granulocytes % 0.2 %; Immature Granulocytes Absolute 0.01 #; Lymphocytes # 0.9 10*3/uL (1.4-4.0); Lymphocytes % 20.3 % (21.3-54.2); Mean Corpuscular HGB Conc 29.6 GM/DL (32-36); Mean Corpuscular Hemoglobin 26 PG (27-34); Mean Corpuscular Volume 87.3 FL (87-102); Mean Platelet Volume 11.4 FL (9.6-12.0); Monocytes # 0.4 10*3/uL (0.11-0.8); Neutrophils % 68.5 % (38.7-73.9); Platelet Count 154 T/CUMM (130-400); Red Blood Count 3.06 MC/CUMM (3.8-5.5); Red Cell Distribution Width 16.8 % (9.3-17.3); White Blood Count 4.4 T/CUMM (4-12)
[2018-03-28 07:14] LABS: Giant Platelets Few; Hypochromasia 1+; Ovalocytes Slight; Platelet Estimate Adequate
[2018-03-28] MEDS: INSULIN GLARGINE 100 UNIT/ML SUBCUT SCH (09:34)
[2018-03-28] MEDS: LABETALOL 100 MG TABLET PO SCH ×2 (09:34→22:17)
[2018-03-28] MEDS: ASPIRIN 325 MG TABLET PO SCH (09:34)
[2018-03-28] MEDS: amLODIPine 10 MG TABLET PO SCH (09:34)
[2018-03-28] MEDS: VALSARTAN 160 MG TABLET PO SCH (09:34)
[2018-03-28] MEDS: PANTOPRAZOLE 40 MG TABLET PO SCH (09:34)
[2018-03-28] MEDS: WARFARIN 5 MG TABLET PO SCH (17:28)
[2018-03-28] MEDS: TRAVOPROST 0.004% OPH SOLN 2.5 ML BOTTLE BOTH EYES SCH (22:18)
[2018-03-29] MEDS: INSULIN LISPRO 100 UNIT/ML SUBCUT SCH ×3 (00:05→06:29)
[2018-03-29] MEDS: ENOXAPARIN 60 MG/0.6 ML SYRINGE SUBCUT SCH (04:12)
[2018-03-29] MEDS: INSULIN GLARGINE 100 UNIT/ML SUBCUT SCH (10:11)
[2018-03-29 10:45] LABS: INR 1.3; PT Patient Result 13.8 SECS
[2018-03-29] MEDS: amLODIPine 10 MG TABLET PO SCH (12:36)
[2018-03-29] MEDS: LABETALOL 100 MG TABLET PO SCH (12:36)
[2018-03-29] MEDS: ASPIRIN 325 MG TABLET PO SCH (12:36)
[2018-03-29] MEDS: PANTOPRAZOLE 40 MG TABLET PO SCH (12:37)
[2018-03-29 13:35] VITALS: BP 177/79
== END 2018-03-29 14:55 | disposition home health service (06) | DRG 291 ==
LOC: EDUNIT# → EDBD → N.ED 19:57 → N.EDINP 22:35 → N.TELEN 03-27 00:01
PROVIDERS: ADMIT Internal Medicine; ATTEND Internal Medicine

== ENCOUNTER 2018-04-24 19:28 | Inpatient (IN) ==
[2018-04-24] MEDS ORDERED: ONDANSETRON 4 MG/2 ML VIAL IV PRN (23:05)
[2018-04-24] MEDS ORDERED: DEXTROSE 50% 25 GM/50 ML VIAL IV PRN ×2 (23:05→23:11)
[2018-04-24] MEDS ORDERED: GLUCAGON 1 MG VIAL IM PRN ×2 (23:05→23:11)
[2018-04-24] MEDS ORDERED: ACETAMINOPHEN 325 MG TABLET PO PRN (23:05)
[2018-04-24] MEDS ORDERED: ALBUTEROL/IPRATROPIUM 3 ML NEB RESP TX PRN (23:09)
[2018-04-24 23:33] LABS: Basophils % 0.2 % (0.0-0.8); Hematocrit 21.3 VOL% (35.7-47.0); Immature Granulocytes % 0.6 %; Immature Granulocytes Absolute 0.05 #; Lymphocytes # 0.5 10*3/uL (1.4-4.0); Lymphocytes % 5.8 % (21.3-54.2); Mean Corpuscular HGB Conc 28.2 GM/DL (32-36); Mean Corpuscular Hemoglobin 25 PG (27-34); Mean Corpuscular Volume 90.3 FL (87-102); Mean Platelet Volume 11.7 FL (9.6-12.0); Monocytes # 0.7 10*3/uL (0.11-0.8); NRBC # 0.02 10*3/uL; Neutrophils # 6.9 10*3/uL (1.4-7.4); Neutrophils % 84.4 % (38.7-73.9); Platelet Count 118 T/CUMM (130-400); Red Blood Count 2.36 MC/CUMM (3.8-5.5); Red Cell Distribution Width 19.9 % (9.3-17.3); White Blood Count 8.2 T/CUMM (4-12)
[2018-04-24] MEDS: cefTRIAXone 1,000 MG in SYRINGE 1 EACH IV SCH (23:34)
[2018-04-24] MEDS: AZITHROMYCIN INJ 500 MG in SODIUM CHLORIDE 0.9% 250 ML IV SCH (23:42)
[2018-04-24] MEDS: HEPARIN 5,000 UNIT/1 ML VIAL SUBCUT SCH (23:42)
[2018-04-24 23:48] LABS: Calcium 7.7 MG/DL (8.5-10.1); Osmolality,Calculated 273.1 MOS/KG (273-304); Potassium 4.7 MMOL/L (3.5-5.1)
[2018-04-24 23:57] LABS: Band Neutrophils 2 % (0-10); Lymphocytes 10 % (20-55); Nucleated Red Blood Cells 2 (0-5); Platelet Estimate Decreased; Segmented Neutrophils 79 % (50-85); Total Cells Counted 100
[2018-04-25] MEDS ORDERED: SODIUM CHLORIDE 0.9% 1,000 ML IV PRN ×2 (02:39→02:54)
[2018-04-25 04:18] LABS: Basophils % 0.3 % (0.0-0.8); Eosinophils % 0.1 % (0.00-10.9); Hemoglobin 6.7 GM/DL (12.0-16.0); Immature Granulocytes % 0.8 %; Immature Granulocytes Absolute 0.08 #; Lymphocytes # 0.5 10*3/uL (1.4-4.0); Mean Corpuscular HGB Conc 29.1 GM/DL (32-36); Mean Corpuscular Hemoglobin 26 PG (27-34); Mean Corpuscular Volume 88.8 FL (87-102); Mean Platelet Volume 12.4 FL (9.6-12.0); Monocytes % 10.3 % (1.7-12.7); NRBC # 0.03 10*3/uL; Neutrophils # 8.3 10*3/uL (1.4-7.4); Neutrophils % 83.5 % (38.7-73.9); Platelet Count 170 T/CUMM (130-400); Red Blood Count 2.59 MC/CUMM (3.8-5.5); Red Cell Distribution Width 19.8 % (9.3-17.3); White Blood Count 9.9 T/CUMM (4-12)
[2018-04-25 04:56] LABS: Albumin 3.1 G/DL (3.4-5.0); Bilirubin,Total 0.6 MG/DL (0.2-1.0); Calcium 7.8 MG/DL (8.5-10.1); Osmolality,Calculated 276.1 MOS/KG (273-304); Potassium 4.7 MMOL/L (3.5-5.1); Total Protein 7.6 G/DL (6.4-8.3)
[2018-04-25] MEDS ORDERED: NITROGLYCERIN SL 0.4 MG TABLET SL PRN (04:58)
[2018-04-25] MEDS ORDERED: ALUM/MAG/SIMETH/LIDO VISC 1:1 30 ML BOTTLE PO ONE (05:16)
[2018-04-25] MEDS: MORPHINE 4 MG/1 ML VIAL IV PRN ×2 (05:27→11:19)
[2018-04-25] MEDS: INSULIN REGULAR 100 UNIT/ML SUBCUT SCH ×4 (08:12→21:59)
[2018-04-25] MEDS: PANTOPRAZOLE 40 MG TABLET PO SCH (09:11)
[2018-04-25] MEDS: VALSARTAN 160 MG TABLET PO SCH (09:11)
[2018-04-25] MEDS: LABETALOL 200 MG TABLET PO SCH ×2 (09:11→21:57)
[2018-04-25] MEDS: ASPIRIN 325 MG TABLET PO SCH (09:11)
[2018-04-25] MEDS: HEPARIN 5,000 UNIT/1 ML VIAL SUBCUT SCH ×2 (09:11→15:17)
[2018-04-25] MEDS: amLODIPine 10 MG TABLET PO SCH (09:11)
[2018-04-25] MEDS: FERROUS SULFATE ER 140 MG TABLET PO SCH ×2 (11:11→22:02)
[2018-04-25 16:44] LABS: Hemoglobin 7.3 GM/DL (12.0-16.0)
[2018-04-25] MEDS: NYSTATIN 500,000 UNIT/5 ML UDCUP SWISH/SWAL SCH ×2 (17:27→21:59)
[2018-04-25] MEDS: ALBUTEROL/IPRATROPIUM 3 ML NEB RESP TX SCH (19:35)
[2018-04-25] MEDS ORDERED: KETOROLAC 10 MG TABLET PO PRN (20:15)
[2018-04-25] MEDS ORDERED: DICLOFENAC 1% GEL 100 GM TUBE TOP SCH (21:00)
[2018-04-25] MEDS: INSULIN GLARGINE 100 UNIT/ML SUBCUT SCH (21:59)
[2018-04-26] MEDS: HEPARIN 5,000 UNIT/1 ML VIAL SUBCUT SCH ×3 (00:09→15:28)
[2018-04-26] MEDS: cefTRIAXone 1,000 MG in SYRINGE 1 EACH IV SCH (00:10)
[2018-04-26] MEDS: AZITHROMYCIN INJ 500 MG in SODIUM CHLORIDE 0.9% 250 ML IV SCH (00:10)
[2018-04-26] MEDS: ALBUTEROL/IPRATROPIUM 3 ML NEB RESP TX SCH ×4 (01:25→19:20)
[2018-04-26 05:39] LABS: Basophils % 0.4 % (0.0-0.8); Eosinophils # 0.2 10*3/uL (0.0-0.87); Eosinophils % 2.1 % (0.00-10.9); Hematocrit 24.2 VOL% (35.7-47.0); Hemoglobin 7.2 GM/DL (12.0-16.0); Immature Granulocytes % 0.4 %; Immature Granulocytes Absolute 0.03 #; Lymphocytes # 0.7 10*3/uL (1.4-4.0); Lymphocytes % 9.2 % (21.3-54.2); Mean Corpuscular HGB Conc 29.8 GM/DL (32-36); Mean Corpuscular Hemoglobin 26 PG (27-34); Mean Corpuscular Volume 87.1 FL (87-102); Monocytes % 12.9 % (1.7-12.7); NRBC # 0.02 10*3/uL; Neutrophils # 5.8 10*3/uL (1.4-7.4); Platelet Count 147 T/CUMM (130-400); Red Blood Count 2.78 MC/CUMM (3.8-5.5); Red Cell Distribution Width 19.6 % (9.3-17.3); White Blood Count 7.7 T/CUMM (4-12)
[2018-04-26] MEDS: ASPIRIN 325 MG TABLET PO SCH (09:08)
[2018-04-26] MEDS: FERROUS SULFATE ER 140 MG TABLET PO SCH ×2 (09:08→21:15)
[2018-04-26] MEDS: PANTOPRAZOLE 40 MG TABLET PO SCH (09:08)
[2018-04-26] MEDS: INSULIN REGULAR 100 UNIT/ML SUBCUT SCH ×4 (09:08→21:22)
[2018-04-26] MEDS: EPOETIN ALFA 10,000 UNIT/1 ML VIAL SUBCUT SCH (09:08)
[2018-04-26] MEDS: NYSTATIN 500,000 UNIT/5 ML UDCUP SWISH/SWAL SCH ×4 (09:08→21:15)
[2018-04-26] MEDS: amLODIPine 10 MG TABLET PO SCH (15:27)
[2018-04-26] MEDS: VALSARTAN 160 MG TABLET PO SCH (15:27)
[2018-04-26] MEDS: LABETALOL 200 MG TABLET PO SCH ×2 (15:28→21:14)
[2018-04-26] MEDS: INSULIN GLARGINE 100 UNIT/ML SUBCUT SCH (21:17)
[2018-04-27] MEDS: cefTRIAXone 1,000 MG in SYRINGE 1 EACH IV SCH (00:07)
[2018-04-27] MEDS: AZITHROMYCIN INJ 500 MG in SODIUM CHLORIDE 0.9% 250 ML IV SCH (00:14)
[2018-04-27] MEDS: HEPARIN 5,000 UNIT/1 ML VIAL SUBCUT SCH ×3 (00:20→14:38)
[2018-04-27] MEDS: ALBUTEROL/IPRATROPIUM 3 ML NEB RESP TX SCH ×4 (00:55→19:49)
[2018-04-27] MEDS: ASPIRIN 325 MG TABLET PO SCH (08:29)
[2018-04-27] MEDS: FERROUS SULFATE ER 140 MG TABLET PO SCH ×2 (08:29→21:53)
[2018-04-27] MEDS: VALSARTAN 160 MG TABLET PO SCH (08:29)
[2018-04-27] MEDS: NYSTATIN 500,000 UNIT/5 ML UDCUP SWISH/SWAL SCH ×4 (08:29→22:00)
[2018-04-27] MEDS: LABETALOL 200 MG TABLET PO SCH ×2 (08:29→21:54)
[2018-04-27] MEDS: PANTOPRAZOLE 40 MG TABLET PO SCH (08:29)
[2018-04-27] MEDS: amLODIPine 10 MG TABLET PO SCH (08:29)
[2018-04-27] MEDS: INSULIN REGULAR 100 UNIT/ML SUBCUT SCH ×4 (08:39→21:58)
[2018-04-27 10:21] LABS: Hematocrit 23.7 VOL% (35.7-47.0); Hemoglobin 6.9 GM/DL (12.0-16.0)
[2018-04-27] MEDS ORDERED: SODIUM CHLORIDE 0.9% 1,000 ML IV PRN (10:35)
[2018-04-27 17:28] LABS: Basophils % 0.5 % (0.0-0.8); Eosinophils # 0.2 10*3/uL (0.0-0.87); Eosinophils % 3.7 % (0.00-10.9); Hematocrit 28.9 VOL% (35.7-47.0); Immature Granulocytes % 0.3 %; Immature Granulocytes Absolute 0.02 #; Lymphocytes # 1.1 10*3/uL (1.4-4.0); Lymphocytes % 19.9 % (21.3-54.2); Mean Corpuscular HGB Conc 30.1 GM/DL (32-36); Mean Corpuscular Hemoglobin 27 PG (27-34); Mean Corpuscular Volume 89.5 FL (87-102); Mean Platelet Volume 11.3 FL (9.6-12.0); Monocytes # 0.7 10*3/uL (0.11-0.8); Monocytes % 12.9 % (1.7-12.7); NRBC # 0.02 10*3/uL; Neutrophils # 3.6 10*3/uL (1.4-7.4); Neutrophils % 62.7 % (38.7-73.9); Platelet Count 140 T/CUMM (130-400); Red Blood Count 3.23 MC/CUMM (3.8-5.5); Red Cell Distribution Width 18.4 % (9.3-17.3); White Blood Count 5.7 T/CUMM (4-12)
[2018-04-27 17:35] LABS: Hemoglobin 8.7 GM/DL (12.0-16.0)
[2018-04-27] MEDS: INSULIN GLARGINE 100 UNIT/ML SUBCUT SCH (21:56)
[2018-04-28] MEDS: cefTRIAXone 1,000 MG in SYRINGE 1 EACH IV SCH ×2 (00:12→23:41)
[2018-04-28] MEDS: AZITHROMYCIN INJ 500 MG in SODIUM CHLORIDE 0.9% 250 ML IV SCH (00:15)
[2018-04-28] MEDS: HEPARIN 5,000 UNIT/1 ML VIAL SUBCUT SCH ×4 (00:22→23:41)
[2018-04-28] MEDS: ALBUTEROL/IPRATROPIUM 3 ML NEB RESP TX SCH ×4 (00:30→19:21)
[2018-04-28 05:51] LABS: Hematocrit 28.9 VOL% (35.7-47.0); Hemoglobin 8.5 GM/DL (12.0-16.0)
[2018-04-28] MEDS: INSULIN REGULAR 100 UNIT/ML SUBCUT SCH ×4 (08:01→22:19)
[2018-04-28] MEDS: VALSARTAN 160 MG TABLET PO SCH (08:22)
[2018-04-28] MEDS: FERROUS SULFATE ER 140 MG TABLET PO SCH ×2 (08:22→22:19)
[2018-04-28] MEDS: amLODIPine 10 MG TABLET PO SCH (08:23)
[2018-04-28] MEDS: PANTOPRAZOLE 40 MG TABLET PO SCH (08:23)
[2018-04-28] MEDS: NYSTATIN 500,000 UNIT/5 ML UDCUP SWISH/SWAL SCH ×4 (08:23→22:13)
[2018-04-28] MEDS: ASPIRIN 325 MG TABLET PO SCH (08:27)
[2018-04-28] MEDS: LABETALOL 200 MG TABLET PO SCH ×2 (13:03→22:13)
[2018-04-28] MEDS ORDERED: MAGNESIUM HYDROXIDE SUSP 30 ML UDCUP PO ONE (14:46)
[2018-04-28] MEDS: INSULIN GLARGINE 100 UNIT/ML SUBCUT SCH (22:13)
[2018-04-29] MEDS: ALBUTEROL/IPRATROPIUM 3 ML NEB RESP TX SCH ×4 (00:39→20:07)
[2018-04-29] MEDS: AZITHROMYCIN INJ 500 MG in SODIUM CHLORIDE 0.9% 250 ML IV SCH (01:15)
[2018-04-29 08:43] LABS: INR 1.3; PT Patient Result 13.2 SECS
[2018-04-29 09:12] LABS: Calcium 9.4 MG/DL (8.5-10.1); Osmolality,Calculated 279.2 MOS/KG (273-304)
[2018-04-29 09:18] LABS: Potassium 6.8 MMOL/L (3.5-5.1)
[2018-04-29] MEDS: INSULIN REGULAR 100 UNIT/ML SUBCUT SCH ×4 (09:41→23:59)
[2018-04-29] MEDS: MORPHINE 4 MG/1 ML VIAL IV PRN (09:50)
[2018-04-29] MEDS ORDERED: PROPOFOL 200 MG/20 ML VIAL IV ONE (10:00)
[2018-04-29] MEDS ORDERED: LIDOCAINE 100 MG/5 ML SYRINGE ONE (10:00)
[2018-04-29] MEDS: NYSTATIN 500,000 UNIT/5 ML UDCUP SWISH/SWAL SCH ×4 (14:27→20:36)
[2018-04-29] MEDS: LABETALOL 200 MG TABLET PO SCH ×2 (15:20→20:36)
[2018-04-29] MEDS: FERROUS SULFATE ER 140 MG TABLET PO SCH (15:20)
[2018-04-29] MEDS: VALSARTAN 160 MG TABLET PO SCH (16:37)
[2018-04-29] MEDS: BISACODYL 5 MG TABLET PO SCH ×3 (16:38→16:45)
[2018-04-29] MEDS: EPOETIN ALFA 10,000 UNIT/1 ML VIAL SUBCUT SCH (16:38)
[2018-04-29] MEDS: amLODIPine 10 MG TABLET PO SCH (16:38)
[2018-04-29] MEDS: PANTOPRAZOLE 40 MG TABLET PO SCH (16:38)
[2018-04-29] MEDS ORDERED: POLYETHYLENE GLYCOL 3350/ELECTROLYTES 4,000 ML BOTTLE PO ONE (18:00)
[2018-04-29] MEDS: METOCLOPRAMIDE 10 MG/2 ML VIAL IV SCH (18:22)
[2018-04-29] MEDS ORDERED: MAGNESIUM CITRATE 300 ML BOTTLE PO ONE (21:00)
[2018-04-29] MEDS: INSULIN GLARGINE 100 UNIT/ML SUBCUT SCH (23:59)
[2018-04-30] MEDS: METOCLOPRAMIDE 10 MG/2 ML VIAL IV SCH ×2 (00:47→05:09)
[2018-04-30] MEDS: BISACODYL 5 MG TABLET PO SCH (00:47)
[2018-04-30] MEDS: cefTRIAXone 1,000 MG in SYRINGE 1 EACH IV SCH (00:49)
[2018-04-30] MEDS: AZITHROMYCIN INJ 500 MG in SODIUM CHLORIDE 0.9% 250 ML IV SCH (00:55)
[2018-04-30] MEDS: ALBUTEROL/IPRATROPIUM 3 ML NEB RESP TX SCH ×3 (01:40→14:30)
[2018-04-30] MEDS: INSULIN REGULAR 100 UNIT/ML SUBCUT SCH ×2 (08:00→12:30)
[2018-04-30 08:15] LABS: Calcium 9.2 MG/DL (8.5-10.1); Osmolality,Calculated 279.7 MOS/KG (273-304); Potassium 5.3 MMOL/L (3.5-5.1)
[2018-04-30 08:36] LABS: Basophils # 0.1 10*3/uL (0.0-0.2); Basophils % 0.8 % (0.0-0.8); Eosinophils # 0.2 10*3/uL (0.0-0.87); Eosinophils % 3.5 % (0.00-10.9); Hematocrit 29.8 VOL% (35.7-47.0); Hemoglobin 8.8 GM/DL (12.0-16.0); Immature Granulocytes % 0.5 %; Immature Granulocytes Absolute 0.03 #; Lymphocytes # 1.1 10*3/uL (1.4-4.0); Lymphocytes % 17.8 % (21.3-54.2); Mean Corpuscular HGB Conc 29.5 GM/DL (32-36); Mean Corpuscular Hemoglobin 26 PG (27-34); Mean Corpuscular Volume 89.5 FL (87-102); Mean Platelet Volume 11.6 FL (9.6-12.0); Monocytes # 0.8 10*3/uL (0.11-0.8); Monocytes % 13.3 % (1.7-12.7); Neutrophils # 3.9 10*3/uL (1.4-7.4); Neutrophils % 64.1 % (38.7-73.9); Platelet Count 185 T/CUMM (130-400); Red Blood Count 3.33 MC/CUMM (3.8-5.5); Red Cell Distribution Width 19.3 % (9.3-17.3); White Blood Count 6.1 T/CUMM (4-12)
[2018-04-30] MEDS: NYSTATIN 500,000 UNIT/5 ML UDCUP SWISH/SWAL SCH (09:00)
[2018-04-30] MEDS ORDERED: PROPOFOL 200 MG/20 ML VIAL IV ONE (10:00)
[2018-04-30] MEDS ORDERED: LIDOCAINE 2% 5 ML VIAL ONE (10:00)
[2018-04-30] MEDS: LABETALOL 200 MG TABLET PO SCH (12:14)
[2018-04-30] MEDS: FERROUS SULFATE ER 140 MG TABLET PO SCH ×2 (12:14)
[2018-04-30 13:01] VITALS: BP 121/59
== END 2018-04-30 16:15 | disposition home or self-care (01) | DRG 193 ==
LOC: SUATTDRO 20:48 → N.5E 20:48
PROVIDERS: ADMIT Internal Medicine; ATTEND Internal Medicine

== ENCOUNTER 2019-01-24 13:48 | Inpatient (IN) ==
[2019-01-24 14:32] LABS: Basophils % 0.4 % (0.0-0.8); Eosinophils # 0.1 10*3/uL (0.0-0.87); Eosinophils % 2.3 % (0.00-10.9); Hematocrit 25.2 VOL% (35.7-47.0); Hemoglobin 7.4 GM/DL (12.0-16.0); Immature Granulocytes % 0.4 %; Immature Granulocytes Absolute 0.02 #; Lymphocytes % 18.1 % (21.3-54.2); Mean Corpuscular HGB Conc 29.4 GM/DL (32-36); Mean Corpuscular Volume 84.3 FL (87-102); Mean Platelet Volume 11.5 FL (9.6-12.0); Monocytes % 11.7 % (1.7-12.7); Neutrophils % 67.1 % (38.7-73.9); Platelet Count 114 T/CUMM (130-400); Red Blood Count 2.99 MC/CUMM (3.8-5.5); Red Cell Distribution Width 18.5 % (9.3-17.3); White Blood Count 5.6 T/CUMM (4-12)
[2019-01-24 14:50] LABS: Albumin 3.6 G/DL (3.4-5.0); Bilirubin,Total 0.6 MG/DL (0.2-1.0); Calcium 8.6 MG/DL (8.5-10.1); Osmolality,Calculated 284.4 MOS/KG (273-304)
[2019-01-24 15:03] LABS: PT Patient Result 78.2 SECS
[2019-01-24 15:04] LABS: INR 7.3
[2019-01-24] MEDS ORDERED: PHYTONADIONE INJ 2.5 MG in SODIUM CHLORIDE 0.9% 25 ML IV STA (15:13)
[2019-01-24] MEDS ORDERED: PHYTONADIONE 10 MG/1 ML AMP ONE (16:18)
[2019-01-24 16:23] LABS: Troponin I 0.048 NG/ML (0.00-0.045)
[2019-01-24] MEDS ORDERED: SODIUM CHLORIDE 0.9% 1,000 ML IV PRN (17:28)
[2019-01-24] MEDS ORDERED: ACETAMINOPHEN 325 MG TABLET PO PRN (17:40)
[2019-01-24] MEDS ORDERED: GLUCAGON 1 MG VIAL IM PRN (17:40)
[2019-01-24] MEDS ORDERED: DEXTROSE 50% 25 GM/50 ML SYRINGE IV PRN (17:40)
[2019-01-24] MEDS ORDERED: ONDANSETRON 4 MG/2 ML VIAL IV PRN (17:40)
[2019-01-24] MEDS ORDERED: ALBUTEROL/IPRATROPIUM 3 ML NEB RESP TX PRN (17:55)
[2019-01-24] MEDS ORDERED: PHYTONADIONE INJ 2.5 MG in SODIUM CHLORIDE 0.9% 25 ML IV ONE (18:00)
[2019-01-24 20:28] LABS: Hematocrit 22.9 VOL% (35.7-47.0); Hemoglobin 6.8 GM/DL (12.0-16.0)
[2019-01-24 20:36] LABS: INR 2.3
[2019-01-24 20:38] LABS: PT Patient Result 24.5 SECS
[2019-01-24] MEDS: TRAVOPROST 0.004% OPH SOLN 2.5 ML BOTTLE BOTH EYES SCH (21:44)
[2019-01-24] MEDS: CARVEDILOL 25 MG TABLET PO SCH (21:44)
[2019-01-24] MEDS: INSULIN LISPRO 100 UNIT/ML SUBCUT SCH (21:44)
[2019-01-25] MEDS: hydrALAZINE 20 MG/1 ML VIAL IV PRN ×4 (00:42→22:08)
[2019-01-25 04:11] LABS: Hemoglobin 7.4 GM/DL (12.0-16.0); INR 1.4
[2019-01-25 04:12] LABS: Basophils % 0.3 % (0.0-0.8); Eosinophils # 0.1 10*3/uL (0.0-0.87); Eosinophils % 1.8 % (0.00-10.9); Hematocrit 25.5 VOL% (35.7-47.0); Hemoglobin 7.4 GM/DL (12.0-16.0); Immature Granulocytes % 0.4 %; Immature Granulocytes Absolute 0.03 #; Lymphocytes # 1.4 10*3/uL (1.4-4.0); Lymphocytes % 21.3 % (21.3-54.2); Mean Corpuscular Volume 86.1 FL (87-102); Mean Platelet Volume 11.5 FL (9.6-12.0); Monocytes % 12.5 % (1.7-12.7); Neutrophils % 63.7 % (38.7-73.9); Platelet Count 118 T/CUMM (130-400); Red Blood Count 2.96 MC/CUMM (3.8-5.5); Red Cell Distribution Width 18.2 % (9.3-17.3); White Blood Count 6.7 T/CUMM (4-12)
[2019-01-25 04:22] LABS: Calcium 7.6 MG/DL (8.5-10.1); Osmolality,Calculated 278.5 MOS/KG (273-304)
[2019-01-25] MEDS: BISACODYL 5 MG TABLET PO SCH (08:05)
[2019-01-25] MEDS: SEVELAMER CARBONATE 800 MG TABLET PO SCH ×3 (08:05→16:42)
[2019-01-25] MEDS: PANTOPRAZOLE 40 MG TABLET PO SCH (08:05)
[2019-01-25] MEDS: CARVEDILOL 25 MG TABLET PO SCH ×2 (08:05→16:42)
[2019-01-25] MEDS: INSULIN LISPRO 100 UNIT/ML SUBCUT SCH ×4 (08:05→21:17)
[2019-01-25 08:17] LABS: Hematocrit 26.2 VOL% (35.7-47.0); Hemoglobin 7.6 GM/DL (12.0-16.0)
[2019-01-25 08:33] LABS: INR 1.2; PT Patient Result 13.2 SECS
[2019-01-25] MEDS: TRAVOPROST 0.004% OPH SOLN 2.5 ML BOTTLE BOTH EYES SCH (21:19)
[2019-01-26 02:27] LABS: Basophils % 0.5 % (0.0-0.8); Eosinophils # 0.2 10*3/uL (0.0-0.87); Eosinophils % 3.2 % (0.00-10.9); Hematocrit 25.9 VOL% (35.7-47.0); Hemoglobin 7.6 GM/DL (12.0-16.0); Immature Granulocytes Absolute 0.06 #; Lymphocytes # 1.2 10*3/uL (1.4-4.0); Lymphocytes % 19.7 % (21.3-54.2); Mean Corpuscular HGB Conc 29.3 GM/DL (32-36); Mean Corpuscular Volume 86.9 FL (87-102); Mean Platelet Volume 11.6 FL (9.6-12.0); Monocytes % 10.8 % (1.7-12.7); Neutrophils % 64.8 % (38.7-73.9); Platelet Count 122 T/CUMM (130-400); Red Blood Count 2.98 MC/CUMM (3.8-5.5); Red Cell Distribution Width 18.3 % (9.3-17.3); White Blood Count 6.3 T/CUMM (4-12)
[2019-01-26 02:30] LABS: INR 1.1; PT Patient Result 11.6 SECS
[2019-01-26] MEDS: hydrALAZINE 20 MG/1 ML VIAL IV PRN ×3 (04:40→18:33)
[2019-01-26] MEDS: SEVELAMER CARBONATE 800 MG TABLET PO SCH ×3 (08:49→16:03)
[2019-01-26] MEDS: BISACODYL 5 MG TABLET PO SCH (08:50)
[2019-01-26] MEDS: PANTOPRAZOLE 40 MG TABLET PO SCH (08:50)
[2019-01-26] MEDS: INSULIN LISPRO 100 UNIT/ML SUBCUT SCH ×4 (08:50→20:53)
[2019-01-26] MEDS: CARVEDILOL 25 MG TABLET PO SCH ×2 (08:55→16:03)
[2019-01-26] MEDS: TRAVOPROST 0.004% OPH SOLN 2.5 ML BOTTLE BOTH EYES SCH (20:33)
[2019-01-27 05:43] LABS: Basophils % 0.3 % (0.0-0.8); Eosinophils # 0.2 10*3/uL (0.0-0.87); Eosinophils % 2.7 % (0.00-10.9); Hematocrit 27.1 VOL% (35.7-47.0); Immature Granulocytes Absolute 0.06 #; Lymphocytes # 1.2 10*3/uL (1.4-4.0); Lymphocytes % 20.3 % (21.3-54.2); Mean Corpuscular HGB Conc 29.5 GM/DL (32-36); Mean Platelet Volume 11.1 FL (9.6-12.0); Monocytes % 11.7 % (1.7-12.7); NRBC # 0.03 10*3/uL; Platelet Count 125 T/CUMM (130-400); Red Blood Count 3.15 MC/CUMM (3.8-5.5); Red Cell Distribution Width 18.4 % (9.3-17.3)
[2019-01-27 05:52] LABS: INR 1.1
[2019-01-27] MEDS: INSULIN LISPRO 100 UNIT/ML SUBCUT SCH ×2 (08:22→13:28)
[2019-01-27] MEDS: PANTOPRAZOLE 40 MG TABLET PO SCH (08:22)
[2019-01-27] MEDS: BISACODYL 5 MG TABLET PO SCH (08:22)
[2019-01-27] MEDS: SEVELAMER CARBONATE 800 MG TABLET PO SCH ×2 (08:22→13:47)
[2019-01-27] MEDS: CARVEDILOL 25 MG TABLET PO SCH (08:22)
[2019-01-27] MEDS ORDERED: HEPARIN 10,000 UNIT/10 ML VIAL IV SCH (11:00)
[2019-01-27] MEDS: hydrALAZINE 20 MG/1 ML VIAL IV PRN (13:47)
[2019-01-27 16:51] VITALS: BP 182/86
== END 2019-01-27 16:45 | disposition home or self-care (01) | DRG 813 ==
LOC: N.ED 13:48 → N.EDINP 16:09 → SUATTDRO 16:09 → N.2E 17:28
PROVIDERS: ADMIT Internal Medicine; ATTEND Internal Medicine

== ENCOUNTER 2019-03-30 12:31 | Inpatient (IN) ==
[2019-03-30] MEDS ORDERED: HYDROmorphone 2 MG/1 ML VIAL IV STA ×2 (13:05→17:08)
[2019-03-30] MEDS ORDERED: ONDANSETRON 4 MG/2 ML VIAL IV STA ×2 (13:05→17:08)
[2019-03-30 14:20] LABS: Basophils % 0.4 % (0.0-0.8); Eosinophils # 0.1 10*3/uL (0.0-0.87); Eosinophils % 1.8 % (0.00-10.9); Hematocrit 45.2 VOL% (35.7-47.0); Hemoglobin 13.4 GM/DL (12.0-16.0); Immature Granulocytes % 0.4 %; Immature Granulocytes Absolute 0.02 #; Lymphocytes # 0.9 10*3/uL (1.4-4.0); Lymphocytes % 17.9 % (21.3-54.2); Mean Corpuscular HGB Conc 29.6 GM/DL (32-36); Mean Corpuscular Volume 87.9 FL (87-102); Mean Platelet Volume 11.3 FL (9.6-12.0); Monocytes % 12.3 % (1.7-12.7); Neutrophils % 67.2 % (38.7-73.9); Platelet Count 152 T/CUMM (130-400); Red Blood Count 5.14 MC/CUMM (3.8-5.5); Red Cell Distribution Width 17.5 % (9.3-17.3)
[2019-03-30 14:23] LABS: Albumin 3.5 G/DL (3.4-5.0); Bilirubin,Total 0.6 MG/DL (0.2-1.0); Calcium 10.1 MG/DL (8.5-10.1); Osmolality,Calculated 289.1 MOS/KG (273-304); Total Protein 7.4 G/DL (6.4-8.3)
[2019-03-30] MEDS ORDERED: hydrALAZINE 20 MG/1 ML VIAL IV STA ×2 (18:13→19:22)
[2019-03-30] MEDS ORDERED: MORPHINE 4 MG/1 ML VIAL IV PRN (19:15)
[2019-03-30] MEDS ORDERED: PROMETHAZINE 25 MG/1 ML VIAL IM PRN (19:15)
[2019-03-30] MEDS ORDERED: ALBUTEROL/IPRATROPIUM 3 ML NEB RESP TX PRN (19:26)
[2019-03-30] MEDS ORDERED: SODIUM CHLORIDE 0.9% 1,000 ML IV SCH (19:30)
[2019-03-30] MEDS ORDERED: DEXTROSE 50% 25 GM/50 ML VIAL IV PRN (19:42)
[2019-03-30] MEDS ORDERED: GLUCAGON 1 MG VIAL IM PRN (19:42)
[2019-03-30] MEDS ORDERED: cloNIDine 0.3 MG/24 HR PATCH TRANSDERM SCH (21:00)
[2019-03-30] MEDS ORDERED: FAMOTIDINE 20 MG/2 ML VIAL IV SCH (21:00)
[2019-03-30] MEDS ORDERED: ENOXAPARIN 30 MG/0.3 ML SYRINGE SUBCUT SCH (21:00)
[2019-03-30] MEDS ORDERED: LABETALOL 20 MG/4 ML SYRINGE IV SCH (21:00)
[2019-03-30 22:29] LABS: INR 1.1; PT Patient Result 11.4 SECS; Partial Thromboplastin Time 26.3 SECS (0-40)
[2019-03-30] MEDS: hydrALAZINE 20 MG/1 ML VIAL IV SCH (23:00)
[2019-03-30] MEDS: TRAVOPROST 0.004% OPH SOLN 2.5 ML BOTTLE BOTH EYES SCH (23:40)
[2019-03-31] MEDS: ONDANSETRON 4 MG/2 ML VIAL IV PRN ×2 (01:56→08:15)
[2019-03-31] MEDS: hydrALAZINE 20 MG/1 ML VIAL IV SCH ×7 (01:57→13:06)
[2019-03-31] MEDS: INSULIN LISPRO 100 UNIT/ML SUBCUT SCH ×4 (01:59→18:05)
[2019-03-31] MEDS: LABETALOL 100 MG/20 ML VIAL IV SCH ×6 (02:00→21:48)
[2019-03-31 07:05] LABS: Albumin 3.3 G/DL (3.4-5.0); Bilirubin,Total 0.6 MG/DL (0.2-1.0); Calcium 9.9 MG/DL (8.5-10.1); Total Protein 7.1 G/DL (6.4-8.3)
[2019-03-31 07:10] LABS: Basophils % 0.5 % (0.0-0.8); Eosinophils # 0.1 10*3/uL (0.0-0.87); Eosinophils % 0.8 % (0.00-10.9); Hematocrit 44.8 VOL% (35.7-47.0); Immature Granulocytes % 0.4 %; Immature Granulocytes Absolute 0.03 #; Lymphocytes # 0.9 10*3/uL (1.4-4.0); Mean Corpuscular HGB Conc 28.8 GM/DL (32-36); Mean Corpuscular Volume 90.5 FL (87-102); Mean Platelet Volume 11.6 FL (9.6-12.0); Monocytes % 9.9 % (1.7-12.7); Neutrophils % 76.4 % (38.7-73.9); Platelet Count 121 T/CUMM (130-400); Red Blood Count 4.95 MC/CUMM (3.8-5.5); Red Cell Distribution Width 17.8 % (9.3-17.3); White Blood Count 7.8 T/CUMM (4-12)
[2019-03-31 07:11] LABS: Hemoglobin 12.9 GM/DL (12.0-16.0)
[2019-03-31] MEDS ORDERED: hydrALAZINE 20 MG/1 ML VIAL IV PRN (13:58)
[2019-03-31] MEDS ORDERED: HEPARIN 10,000 UNIT/10 ML VIAL IV PRN (15:01)
[2019-03-31] MEDS: SEVELAMER CARBONATE 800 MG TABLET PO SCH (17:55)
[2019-03-31] MEDS: CARVEDILOL 25 MG TABLET PO SCH (21:48)
[2019-03-31] MEDS: HEPARIN 5,000 UNIT/1 ML VIAL SUBCUT SCH (21:48)
[2019-03-31] MEDS: TRAVOPROST 0.004% OPH SOLN 2.5 ML BOTTLE BOTH EYES SCH (21:49)
[2019-04-01] MEDS: INSULIN LISPRO 100 UNIT/ML SUBCUT SCH ×4 (00:37→18:00)
[2019-04-01] MEDS: LABETALOL 100 MG/20 ML VIAL IV SCH ×6 (02:38→22:09)
[2019-04-01] MEDS: CARVEDILOL 25 MG TABLET PO SCH ×2 (10:11→22:07)
[2019-04-01] MEDS: SEVELAMER CARBONATE 800 MG TABLET PO SCH ×3 (10:11→16:16)
[2019-04-01] MEDS: amLODIPine 10 MG TABLET PO SCH (10:11)
[2019-04-01] MEDS: PANTOPRAZOLE 40 MG TABLET PO SCH (10:11)
[2019-04-01] MEDS: HEPARIN 5,000 UNIT/1 ML VIAL SUBCUT SCH ×2 (10:12→22:07)
[2019-04-01] MEDS: TRAVOPROST 0.004% OPH SOLN 2.5 ML BOTTLE BOTH EYES SCH (22:08)
[2019-04-02] MEDS: INSULIN LISPRO 100 UNIT/ML SUBCUT SCH ×4 (03:07→18:17)
[2019-04-02] MEDS: LABETALOL 100 MG/20 ML VIAL IV SCH ×6 (03:24→21:15)
[2019-04-02] MEDS: SEVELAMER CARBONATE 800 MG TABLET PO SCH ×3 (08:15→17:10)
[2019-04-02] MEDS: CARVEDILOL 25 MG TABLET PO SCH ×2 (08:16→21:14)
[2019-04-02] MEDS: amLODIPine 10 MG TABLET PO SCH (08:16)
[2019-04-02] MEDS: PANTOPRAZOLE 40 MG TABLET PO SCH (08:17)
[2019-04-02] MEDS ORDERED: ACETAMINOPHEN 325 MG TABLET PO PRN (13:07)
[2019-04-02] MEDS: HEPARIN 5,000 UNIT/1 ML VIAL SUBCUT SCH ×2 (13:22→21:14)
[2019-04-02] MEDS: TRAVOPROST 0.004% OPH SOLN 2.5 ML BOTTLE BOTH EYES SCH (21:14)
[2019-04-03] MEDS: INSULIN LISPRO 100 UNIT/ML SUBCUT SCH ×3 (00:23→11:55)
[2019-04-03] MEDS: LABETALOL 100 MG/20 ML VIAL IV SCH ×3 (01:20→11:53)
[2019-04-03] MEDS: amLODIPine 10 MG TABLET PO SCH (09:34)
[2019-04-03] MEDS: PANTOPRAZOLE 40 MG TABLET PO SCH (09:34)
[2019-04-03] MEDS: CARVEDILOL 25 MG TABLET PO SCH (09:34)
[2019-04-03] MEDS: HEPARIN 5,000 UNIT/1 ML VIAL SUBCUT SCH (09:35)
[2019-04-03] MEDS: SEVELAMER CARBONATE 800 MG TABLET PO SCH ×2 (09:39→11:52)
[2019-04-03 13:06] VITALS: BP 122/74
== END 2019-04-03 14:21 | disposition home health service (06) | DRG 391 ==
LOC: N.ED 12:31 → N.EDINP 19:15 → SUATTDRO 19:16 → N.5E 19:52
PROVIDERS: ADMIT Internal Medicine; ATTEND Internal Medicine

== ENCOUNTER 2019-07-08 22:11 | Inpatient (IN) ==
[2019-07-08] MEDS ORDERED: ONDANSETRON 4 MG/2 ML VIAL IV STA (22:48)
[2019-07-08] MEDS ORDERED: NITROGLYCERIN 2% OINT 1 INCH/GM PACK TOP STA (22:49)
[2019-07-08 22:57] LABS: Basophils # 0.1 10*3/uL (0.0-0.2); Eosinophils # 1.4 10*3/uL (0.0-0.87); Eosinophils % 11.1 % (0.00-10.9); Hematocrit 29.7 VOL% (35.7-47.0); Hemoglobin 8.8 GM/DL (12.0-16.0); Immature Granulocytes % 1.7 %; Immature Granulocytes Absolute 0.21 #; Lymphocytes # 1.1 10*3/uL (1.4-4.0); Lymphocytes % 9.1 % (21.3-54.2); Mean Corpuscular HGB Conc 29.6 GM/DL (32-36); Mean Corpuscular Volume 89.5 FL (87-102); Mean Platelet Volume 11.2 FL (9.6-12.0); Monocytes % 8.2 % (1.7-12.7); NRBC # 0.06 10*3/uL; Neutrophils % 68.9 % (38.7-73.9); Platelet Count 170 T/CUMM (130-400); Red Blood Count 3.32 MC/CUMM (3.8-5.5); Red Cell Distribution Width 18.2 % (9.3-17.3); White Blood Count 12.5 T/CUMM (4-12)
[2019-07-08] MEDS ORDERED: ALBUTEROL 2.5 MG/3 ML NEB RESP TX SCH (23:00)
[2019-07-08 23:09] LABS: Albumin 3.6 G/DL (3.4-5.0); Bilirubin,Total 0.7 MG/DL (0.2-1.0); Osmolality,Calculated 292.5 MOS/KG (273-304); Total Protein 8.3 G/DL (6.4-8.3)
[2019-07-08] MEDS ORDERED: MAGNESIUM SULF RIDER 2 GM in PREMIX 1 EACH IV STA (23:29)
[2019-07-08] MEDS ORDERED: cefTRIAXone 1,000 MG in SODIUM CHLORIDE 0.9% 100 ML IV STA (23:32)
[2019-07-09 00:13] LABS: Eosinophils 10 % (0-10); Hypochromasia Slight; Lymphocytes 7 % (20-55); Nucleated Red Blood Cells 1 (0-5); Platelet Estimate Adequate; Polychromasia Few; Segmented Neutrophils 80 % (50-85); Total Cells Counted 100
[2019-07-09 00:25] LABS: Allen Test Positive
[2019-07-09 00:26] LABS: ABG Base Excess 4.2 MMOL/L (-2.5-2.5); ABG HCO3 28.1 MMOL/L (20-26); ABG Oxygen Saturation 90.3 % (95-100); ABG PCO2 46.8 MM HG (35-48); ABG PH 7.406 (7.35-7.45); ABG PO2 59.6 MM HG (80-95); ABG TCO2 27.5 MMOL/L (23-27)
[2019-07-09] MEDS ORDERED: ACETAMINOPHEN 325 MG TABLET PO PRN (02:34)
[2019-07-09] MEDS ORDERED: GLUCAGON 1 MG VIAL IM PRN (02:34)
[2019-07-09] MEDS ORDERED: DEXTROSE 50% 25 GM/50 ML VIAL IV PRN (02:34)
[2019-07-09] MEDS ORDERED: ONDANSETRON 4 MG/2 ML VIAL IV PRN (02:34)
[2019-07-09] MEDS ORDERED: DOCUSATE SODIUM 100 MG CAPSULE PO PRN (02:34)
[2019-07-09] MEDS ORDERED: ALBUTEROL 2.5 MG/3 ML NEB RESP TX PRN (02:34)
[2019-07-09] MEDS ORDERED: PIPERACILLIN/TAZOBACTAM 3,375 MG in SODIUM CHLORIDE 0.9% 100 ML IV SCH (03:00)
[2019-07-09] MEDS: HEPARIN 5,000 UNIT/1 ML VIAL SUBCUT SCH ×3 (03:21→22:33)
[2019-07-09 05:26] LABS: Basophils # 0.1 10*3/uL (0.0-0.2); Basophils % 1.2 % (0.0-0.8); Eosinophils # 0.8 10*3/uL (0.0-0.87); Eosinophils % 8.5 % (0.00-10.9); Hematocrit 25.7 VOL% (35.7-47.0); Hemoglobin 7.4 GM/DL (12.0-16.0); Immature Granulocytes % 1.1 %; Lymphocytes # 0.9 10*3/uL (1.4-4.0); Lymphocytes % 10.3 % (21.3-54.2); Mean Corpuscular HGB Conc 28.8 GM/DL (32-36); Mean Corpuscular Volume 91.1 FL (87-102); Mean Platelet Volume 12.2 FL (9.6-12.0); Monocytes % 11.1 % (1.7-12.7); NRBC # 0.04 10*3/uL; Neutrophils % 67.8 % (38.7-73.9); Platelet Count 150 T/CUMM (130-400); Red Blood Count 2.82 MC/CUMM (3.8-5.5); Red Cell Distribution Width 17.8 % (9.3-17.3); White Blood Count 8.9 T/CUMM (4-12)
[2019-07-09 05:48] LABS: Calcium 8.2 MG/DL (8.5-10.1); Osmolality,Calculated 294.5 MOS/KG (273-304)
[2019-07-09 06:06] LABS: Hypochromasia 2+; Platelet Estimate Adequate; Polychromasia Slight
[2019-07-09 06:07] LABS: Macrocytosis Slight
[2019-07-09] MEDS: ALBUTEROL/IPRATROPIUM 3 ML NEB RESP TX SCH ×3 (07:14→20:20)
[2019-07-09] MEDS ORDERED: LEVOFLOXACIN INJ 750 MG in PREMIX 1 EACH IV ONE (08:00)
[2019-07-09] MEDS: INSULIN LISPRO 100 UNIT/ML SUBCUT SCH ×4 (10:03→22:35)
[2019-07-09] MEDS: amLODIPine 10 MG TABLET PO SCH (12:50)
[2019-07-09] MEDS: carvediloL 25 MG TABLET PO SCH ×2 (12:50→22:37)
[2019-07-09] MEDS ORDERED: HEPARIN 10,000 UNIT/10 ML VIAL IV SCH (15:30)
[2019-07-09] MEDS: SEVELAMER CARBONATE 800 MG TABLET PO SCH ×2 (15:53→16:01)
[2019-07-09] MEDS: ASPIRIN EC 81 MG TABLET PO SCH (15:58)
[2019-07-09] MEDS ORDERED: INSULIN GLARGINE 100 UNIT/ML SUBCUT SCH (21:00)
[2019-07-09] MEDS: TRAVOPROST 0.004% OPH SOLN 2.5 ML BOTTLE BOTH EYES SCH (22:38)
[2019-07-10] MEDS: ALBUTEROL/IPRATROPIUM 3 ML NEB RESP TX SCH ×4 (02:47→19:56)
[2019-07-10] MEDS: HEPARIN 5,000 UNIT/1 ML VIAL SUBCUT SCH ×3 (05:08→18:52)
[2019-07-10 05:33] LABS: Basophils # 0.1 10*3/uL (0.0-0.2); Eosinophils # 0.9 10*3/uL (0.0-0.87); Eosinophils % 9.8 % (0.00-10.9); Hematocrit 26.7 VOL% (35.7-47.0); Hemoglobin 7.6 GM/DL (12.0-16.0); Immature Granulocytes % 0.8 %; Immature Granulocytes Absolute 0.07 #; Lymphocytes % 10.7 % (21.3-54.2); Mean Corpuscular HGB Conc 28.5 GM/DL (32-36); Mean Corpuscular Volume 91.1 FL (87-102); Mean Platelet Volume 11.5 FL (9.6-12.0); NRBC # 0.03 10*3/uL; Neutrophils % 67.7 % (38.7-73.9); Platelet Count 133 T/CUMM (130-400); Red Blood Count 2.93 MC/CUMM (3.8-5.5); White Blood Count 9.2 T/CUMM (4-12)
[2019-07-10 05:53] LABS: Calcium 8.9 MG/DL (8.5-10.1); Osmolality,Calculated 278.7 MOS/KG (273-304)
[2019-07-10 05:57] LABS: Hypochromasia 1+; Ovalocytes Slight; Platelet Estimate Normal
[2019-07-10] MEDS: INSULIN LISPRO 100 UNIT/ML SUBCUT SCH ×4 (08:04→20:36)
[2019-07-10] MEDS: amLODIPine 10 MG TABLET PO SCH (08:58)
[2019-07-10] MEDS: ASPIRIN EC 81 MG TABLET PO SCH (08:58)
[2019-07-10] MEDS: SEVELAMER CARBONATE 800 MG TABLET PO SCH ×3 (08:58→17:22)
[2019-07-10] MEDS: carvediloL 25 MG TABLET PO SCH ×2 (08:59→22:21)
[2019-07-11] MEDS: ALBUTEROL/IPRATROPIUM 3 ML NEB RESP TX SCH ×4 (01:09→20:24)
[2019-07-11] MEDS: TRAVOPROST 0.004% OPH SOLN 2.5 ML BOTTLE BOTH EYES SCH ×2 (03:01→21:00)
[2019-07-11] MEDS: HEPARIN 5,000 UNIT/1 ML VIAL SUBCUT SCH ×3 (05:36→20:48)
[2019-07-11] MEDS ORDERED: LEVOFLOXACIN INJ 500 MG in PREMIX 1 EACH IV SCH (08:00)
[2019-07-11] MEDS: INSULIN LISPRO 100 UNIT/ML SUBCUT SCH ×4 (08:06→21:35)
[2019-07-11] MEDS: ASPIRIN EC 81 MG TABLET PO SCH (12:29)
[2019-07-11] MEDS: carvediloL 25 MG TABLET PO SCH ×2 (12:29→20:50)
[2019-07-11] MEDS: SEVELAMER CARBONATE 800 MG TABLET PO SCH ×3 (12:29→17:45)
[2019-07-11] MEDS: amLODIPine 10 MG TABLET PO SCH (12:29)
[2019-07-11] MEDS ORDERED: LEVOFLOXACIN 500 MG TABLET PO SCH (14:00)
[2019-07-12] MEDS: ALBUTEROL/IPRATROPIUM 3 ML NEB RESP TX SCH ×3 (00:55→12:05)
[2019-07-12] MEDS: HEPARIN 5,000 UNIT/1 ML VIAL SUBCUT SCH (03:57)
[2019-07-12 05:08] LABS: Basophils # 0.1 10*3/uL (0.0-0.2); Basophils % 1.2 % (0.0-0.8); Eosinophils % 14.6 % (0.00-10.9); Hematocrit 28.6 VOL% (35.7-47.0); Hemoglobin 8.3 GM/DL (12.0-16.0); Immature Granulocytes % 0.4 %; Immature Granulocytes Absolute 0.03 #; Lymphocytes # 1.1 10*3/uL (1.4-4.0); Lymphocytes % 16.8 % (21.3-54.2); Mean Corpuscular Volume 90.5 FL (87-102); Monocytes % 12.7 % (1.7-12.7); Neutrophils % 54.3 % (38.7-73.9); Platelet Count 123 T/CUMM (130-400); Red Blood Count 3.16 MC/CUMM (3.8-5.5); White Blood Count 6.8 T/CUMM (4-12)
[2019-07-12 06:48] LABS: Anisocytosis 1+; Band Neutrophils 3 % (0-10); Eosinophils 12 % (0-10); Lymphocytes 23 % (20-55); Segmented Neutrophils 58 % (50-85); Total Cells Counted 100
[2019-07-12 06:49] LABS: Hypochromasia 1+; Platelet Estimate Adequate; Polychromasia 1+
[2019-07-12] MEDS: INSULIN LISPRO 100 UNIT/ML SUBCUT SCH (09:12)
[2019-07-12] MEDS: SEVELAMER CARBONATE 800 MG TABLET PO SCH (09:12)
[2019-07-12] MEDS: ASPIRIN EC 81 MG TABLET PO SCH (09:13)
[2019-07-12] MEDS: carvediloL 25 MG TABLET PO SCH (09:13)
[2019-07-12] MEDS: amLODIPine 10 MG TABLET PO SCH (09:13)
[2019-07-12 11:13] VITALS: BP 158/79
== END 2019-07-12 12:00 | disposition home health service (06) | DRG 291 ==
LOC: EDBD → EDUNIT# → N.ED 22:11 → N.EDINP 07-09 01:16 → SUATTDRO 07-09 01:16 → N.5E 07-09 01:40
PROVIDERS: ADMIT Internal Medicine; ATTEND Internal Medicine

== ENCOUNTER 2019-07-31 14:52 | Inpatient (IN) ==
[2019-07-31] MEDS ORDERED: ALBUTEROL/IPRATROPIUM 3 ML NEB RESP TX STA (15:17)
[2019-07-31] MEDS ORDERED: ONDANSETRON 4 MG/2 ML VIAL IV STA (15:17)
[2019-07-31] MEDS ORDERED: hydrALAZINE 20 MG/1 ML VIAL IV STA (15:17)
[2019-07-31] MEDS ORDERED: methylPREDNISolone SOD SUC 125 MG/2 ML VIAL IV STA (15:17)
[2019-07-31] MEDS ORDERED: NITROGLYCERIN 2% OINT 1 INCH/GM PACK TOP STA (15:17)
[2019-07-31] MEDS ORDERED: PIPERACILLIN/TAZOBACTAM 3,375 MG in SODIUM CHLORIDE 0.9% 100 ML IV STA (15:53)
[2019-07-31 16:07] LABS: Basophils % 0.4 % (0.0-0.8); Eosinophils # 0.4 10*3/uL (0.0-0.87); Eosinophils % 5.4 % (0.00-10.9); Hematocrit 29.5 VOL% (35.7-47.0); Hemoglobin 8.7 GM/DL (12.0-16.0); Immature Granulocytes % 0.4 %; Immature Granulocytes Absolute 0.03 #; Lymphocytes # 0.9 10*3/uL (1.4-4.0); Mean Corpuscular HGB Conc 29.5 GM/DL (32-36); Mean Corpuscular Volume 91.3 FL (87-102); Mean Platelet Volume 11.5 FL (9.6-12.0); Monocytes % 12.2 % (1.7-12.7); Neutrophils % 68.6 % (38.7-73.9); Platelet Count 142 T/CUMM (130-400); Red Blood Count 3.23 MC/CUMM (3.8-5.5); Red Cell Distribution Width 18.6 % (9.3-17.3); White Blood Count 6.8 T/CUMM (4-12)
[2019-07-31 16:17] LABS: PT Patient Result 10.8 SECS (9.6-12.2)
[2019-07-31 16:29] LABS: Albumin 3.7 G/DL (3.4-5.0); Bilirubin,Total 1.1 MG/DL (0.2-1.0); Calcium 8.6 MG/DL (8.5-10.1); Osmolality,Calculated 298.7 MOS/KG (273-304); Total Protein 7.9 G/DL (6.4-8.3)
[2019-07-31] MEDS ORDERED: INSULIN GLARGINE 100 UNIT/ML SUBCUT PRN (17:20)
[2019-07-31] MEDS ORDERED: ACETAMINOPHEN 325 MG TABLET PO PRN (17:32)
[2019-07-31] MEDS ORDERED: ONDANSETRON 4 MG/2 ML VIAL IV PRN (17:32)
[2019-07-31] MEDS ORDERED: DEXTROSE 50% 25 GM/50 ML VIAL IV PRN (17:32)
[2019-07-31] MEDS ORDERED: GLUCAGON 1 MG VIAL IM PRN (17:32)
[2019-07-31] MEDS ORDERED: BENZONATATE 100 MG CAPSULE PO PRN (17:38)
[2019-07-31] MEDS ORDERED: ALBUTEROL/IPRATROPIUM 3 ML NEB RESP TX PRN (17:38)
[2019-07-31] MEDS ORDERED: cefTRIAXone 1,000 MG in SODIUM CHLORIDE 0.9% 100 ML IV SCH (18:00)
[2019-07-31] MEDS ORDERED: AZITHROMYCIN INJ 500 MG in SODIUM CHLORIDE 0.9% 250 ML IV SCH (18:00)
[2019-07-31] MEDS: CLINDAMYCIN INJ 600 MG in PREMIX 1 EACH IV SCH (18:23)
[2019-07-31] MEDS: ALBUTEROL 2.5 MG/3 ML NEB RESP TX SCH (19:51)
[2019-07-31] MEDS: carvediloL 25 MG TABLET PO SCH (20:52)
[2019-07-31] MEDS: guaiFENesin/DM ER 600-30 MG TABLET PO SCH (20:52)
[2019-07-31] MEDS: TRAVOPROST 0.004% OPH SOLN 2.5 ML BOTTLE BOTH EYES SCH (20:52)
[2019-07-31] MEDS ORDERED: ENOXAPARIN 30 MG/0.3 ML SYRINGE SUBCUT SCH (21:00)
[2019-07-31] MEDS: INSULIN REGULAR 100 UNIT/ML SUBCUT SCH (21:06)
[2019-07-31] MEDS ORDERED: hydrALAZINE 20 MG/1 ML VIAL IV ONE (22:36)
[2019-08-01] MEDS: ALBUTEROL 2.5 MG/3 ML NEB RESP TX SCH ×4 (00:22→20:40)
[2019-08-01] MEDS: CLINDAMYCIN INJ 600 MG in PREMIX 1 EACH IV SCH ×2 (01:59→11:19)
[2019-08-01 02:54] LABS: Basophils % 0.2 % (0.0-0.8); Eosinophils % 0.2 % (0.00-10.9); Hematocrit 25.4 VOL% (35.7-47.0); Hemoglobin 7.6 GM/DL (12.0-16.0); Immature Granulocytes % 0.3 %; Immature Granulocytes Absolute 0.02 #; Lymphocytes # 0.4 10*3/uL (1.4-4.0); Lymphocytes % 6.8 % (21.3-54.2); Mean Corpuscular HGB Conc 29.9 GM/DL (32-36); Mean Corpuscular Volume 90.1 FL (87-102); Mean Platelet Volume 11.8 FL (9.6-12.0); Monocytes % 2.1 % (1.7-12.7); Neutrophils % 90.4 % (38.7-73.9); Platelet Count 148 T/CUMM (130-400); Red Blood Count 2.82 MC/CUMM (3.8-5.5); Red Cell Distribution Width 18.6 % (9.3-17.3); White Blood Count 6.2 T/CUMM (4-12)
[2019-08-01 03:18] LABS: Calcium 8.7 MG/DL (8.5-10.1)
[2019-08-01] MEDS ORDERED: PIPERACILLIN/TAZOBACTAM 3,375 MG in SODIUM CHLORIDE 0.9% 100 ML IV SCH (04:00)
[2019-08-01] MEDS: guaiFENesin/DM ER 600-30 MG TABLET PO SCH ×2 (08:59→21:39)
[2019-08-01] MEDS: LOSARTAN 25 MG TABLET PO SCH (08:59)
[2019-08-01] MEDS: FERROUS SULFATE ER 140 MG TABLET PO SCH (09:00)
[2019-08-01] MEDS: carvediloL 25 MG TABLET PO SCH ×2 (09:00→21:39)
[2019-08-01] MEDS: amLODIPine 10 MG TABLET PO SCH (09:00)
[2019-08-01] MEDS: PANTOPRAZOLE 40 MG TABLET PO SCH (09:00)
[2019-08-01] MEDS: SEVELAMER CARBONATE 800 MG TABLET PO SCH ×3 (09:00→17:10)
[2019-08-01] MEDS: ASPIRIN EC 81 MG TABLET PO SCH (09:00)
[2019-08-01] MEDS: INSULIN REGULAR 100 UNIT/ML SUBCUT SCH ×4 (10:15→21:47)
[2019-08-01] MEDS ORDERED: HEPARIN 10,000 UNIT/10 ML VIAL IV PRN (11:31)
[2019-08-01] MEDS ORDERED: GLUCOSE GEL 15 GM TUBE PO PRN (15:48)
[2019-08-01] MEDS ORDERED: GLUCOSE GEL 15 GM TUBE PO ONE (15:49)
[2019-08-01] MEDS: HEPARIN 5,000 UNIT/1 ML VIAL SUBCUT SCH (21:39)
[2019-08-01] MEDS: TRAVOPROST 0.004% OPH SOLN 2.5 ML BOTTLE BOTH EYES SCH (21:47)
[2019-08-02] MEDS: ALBUTEROL 2.5 MG/3 ML NEB RESP TX SCH ×4 (01:39→19:22)
[2019-08-02] MEDS: HEPARIN 5,000 UNIT/1 ML VIAL SUBCUT SCH ×2 (09:14→21:32)
[2019-08-02] MEDS: INSULIN REGULAR 100 UNIT/ML SUBCUT SCH ×4 (09:15→21:32)
[2019-08-02] MEDS: guaiFENesin/DM ER 600-30 MG TABLET PO SCH ×2 (09:15→21:32)
[2019-08-02] MEDS: ASPIRIN EC 81 MG TABLET PO SCH (09:15)
[2019-08-02] MEDS: FERROUS SULFATE ER 140 MG TABLET PO SCH (09:15)
[2019-08-02] MEDS: SEVELAMER CARBONATE 800 MG TABLET PO SCH ×3 (09:15→16:57)
[2019-08-02] MEDS: carvediloL 25 MG TABLET PO SCH ×2 (09:16→21:32)
[2019-08-02] MEDS: LOSARTAN 25 MG TABLET PO SCH (09:16)
[2019-08-02] MEDS: amLODIPine 10 MG TABLET PO SCH (09:16)
[2019-08-02] MEDS: PANTOPRAZOLE 40 MG TABLET PO SCH (09:16)
[2019-08-02] MEDS: TRAVOPROST 0.004% OPH SOLN 2.5 ML BOTTLE BOTH EYES SCH (21:34)
[2019-08-03] MEDS: ALBUTEROL 2.5 MG/3 ML NEB RESP TX SCH ×4 (01:02→19:32)
[2019-08-03 06:06] LABS: Basophils # 0.1 10*3/uL (0.0-0.2); Basophils % 1.1 % (0.0-0.8); Eosinophils # 0.4 10*3/uL (0.0-0.87); Eosinophils % 8.4 % (0.00-10.9); Hematocrit 29.4 VOL% (35.7-47.0); Hemoglobin 8.8 GM/DL (12.0-16.0); Immature Granulocytes % 0.4 %; Immature Granulocytes Absolute 0.02 #; Lymphocytes # 1.1 10*3/uL (1.4-4.0); Lymphocytes % 24.1 % (21.3-54.2); Mean Corpuscular HGB Conc 29.9 GM/DL (32-36); Mean Corpuscular Volume 92.2 FL (87-102); Mean Platelet Volume 11.9 FL (9.6-12.0); Monocytes % 15.9 % (1.7-12.7); Neutrophils % 50.1 % (38.7-73.9); Platelet Count 179 T/CUMM (130-400); Red Blood Count 3.19 MC/CUMM (3.8-5.5); Red Cell Distribution Width 18.2 % (9.3-17.3); White Blood Count 4.5 T/CUMM (4-12)
[2019-08-03 06:16] LABS: Calcium 8.6 MG/DL (8.5-10.1)
[2019-08-03 06:47] LABS: Eosinophils 11 % (0-10); Hypochromasia 1+; Lymphocytes 17 % (20-55); Microcytosis 1+; Platelet Estimate Decreased; Segmented Neutrophils 61 % (50-85); Total Cells Counted 100
[2019-08-03] MEDS ORDERED: SODIUM POLYSTYRENE SULFATE 15 GM/60 ML BOTTLE PO ONE ×2 (08:29→12:45)
[2019-08-03] MEDS: guaiFENesin/DM ER 600-30 MG TABLET PO SCH ×2 (09:23→22:31)
[2019-08-03] MEDS: carvediloL 25 MG TABLET PO SCH ×2 (09:23→22:31)
[2019-08-03] MEDS: FERROUS SULFATE ER 140 MG TABLET PO SCH (09:23)
[2019-08-03] MEDS: amLODIPine 10 MG TABLET PO SCH (09:23)
[2019-08-03] MEDS: ASPIRIN EC 81 MG TABLET PO SCH (09:23)
[2019-08-03] MEDS: PANTOPRAZOLE 40 MG TABLET PO SCH (09:24)
[2019-08-03] MEDS: INSULIN REGULAR 100 UNIT/ML SUBCUT SCH ×4 (09:31→20:17)
[2019-08-03] MEDS: SEVELAMER CARBONATE 800 MG TABLET PO SCH ×3 (10:14→16:59)
[2019-08-03 12:11] LABS: Calcium 8.6 MG/DL (8.5-10.1); Osmolality,Calculated 296.8 MOS/KG (273-304)
[2019-08-03] MEDS: HEPARIN 5,000 UNIT/1 ML VIAL SUBCUT SCH ×2 (12:24→22:30)
[2019-08-03] MEDS: TRAVOPROST 0.004% OPH SOLN 2.5 ML BOTTLE BOTH EYES SCH (22:33)
[2019-08-04] MEDS: ALBUTEROL 2.5 MG/3 ML NEB RESP TX SCH ×3 (00:03→14:00)
[2019-08-04 07:28] LABS: Calcium 8.6 MG/DL (8.5-10.1); Osmolality,Calculated 295.7 MOS/KG (273-304)
[2019-08-04] MEDS: INSULIN REGULAR 100 UNIT/ML SUBCUT SCH ×3 (08:13→16:21)
[2019-08-04] MEDS: SEVELAMER CARBONATE 800 MG TABLET PO SCH ×3 (09:06→18:39)
[2019-08-04] MEDS: amLODIPine 10 MG TABLET PO SCH (09:06)
[2019-08-04] MEDS: HEPARIN 5,000 UNIT/1 ML VIAL SUBCUT SCH (09:06)
[2019-08-04] MEDS: FERROUS SULFATE ER 140 MG TABLET PO SCH (09:06)
[2019-08-04] MEDS: ASPIRIN EC 81 MG TABLET PO SCH (09:06)
[2019-08-04] MEDS: guaiFENesin/DM ER 600-30 MG TABLET PO SCH (09:06)
[2019-08-04] MEDS: carvediloL 25 MG TABLET PO SCH (09:06)
[2019-08-04] MEDS: PANTOPRAZOLE 40 MG TABLET PO SCH (09:07)
[2019-08-04 19:01] VITALS: BP 153/73
== END 2019-08-04 19:14 | disposition home health service (06) | DRG 291 ==
LOC: N.ED 14:52 → SUATTDRO 17:32 → N.EDINP 17:32 → N.5E 17:53
PROVIDERS: ADMIT Internal Medicine Cardiovascular Disease; ATTEND Internal Medicine

== ENCOUNTER 2019-08-08 06:17 | Inpatient (IN) ==
[2019-08-08 08:06] LABS: Basophils # 0.1 10*3/uL (0.0-0.2); Basophils % 0.6 % (0.0-0.8); Eosinophils # 0.4 10*3/uL (0.0-0.87); Eosinophils % 5.1 % (0.00-10.9); Hematocrit 28.8 VOL% (35.7-47.0); Hemoglobin 8.3 GM/DL (12.0-16.0); Immature Granulocytes % 0.5 %; Immature Granulocytes Absolute 0.04 #; Lymphocytes # 1.4 10*3/uL (1.4-4.0); Lymphocytes % 17.1 % (21.3-54.2); Mean Corpuscular HGB Conc 28.8 GM/DL (32-36); Mean Corpuscular Volume 91.4 FL (87-102); Mean Platelet Volume 10.9 FL (9.6-12.0); Monocytes % 9.4 % (1.7-12.7); Neutrophils % 67.3 % (38.7-73.9); Platelet Count 183 T/CUMM (130-400); Red Blood Count 3.15 MC/CUMM (3.8-5.5); White Blood Count 8.3 T/CUMM (4-12)
[2019-08-08 08:28] LABS: Anisocytosis 2+; Platelet Estimate Normal
[2019-08-08 08:29] LABS: Alanine Aminotransferase 16 U/L (13-56); Albumin 3.5 G/DL (3.4-5.0); Alkaline Phosphatase 84 U/L (45-117); Aspartate Amino Transferase 21 U/L (0-37); Blood Urea Nitrogen 50 MG/DL (7-18); Calcium 9.4 MG/DL (8.5-10.1); Estimated Glom Filtration Rate 7 ML/MIN; Glucose 115 MG/DL (74-106); Osmolality,Calculated 288.7 MOS/KG (273-304); Troponin I 0.043 NG/ML (0.00-0.045)
[2019-08-08] MEDS ORDERED: ACETAMINOPHEN 325 MG TABLET PO PRN (10:45)
[2019-08-08] MEDS ORDERED: guaiFENesin/DM ER 600-30 MG TABLET PO PRN (10:45)
[2019-08-08] MEDS ORDERED: LACTULOSE 20 GM/30 ML UDCUP PO PRN (10:45)
[2019-08-08] MEDS ORDERED: ONDANSETRON 4 MG/2 ML VIAL IV PRN (10:45)
[2019-08-08] MEDS ORDERED: ALBUTEROL 2.5 MG/3 ML NEB RESP TX PRN (11:00)
[2019-08-08] MEDS ORDERED: GLUCAGON 1 MG VIAL IM PRN (11:04)
[2019-08-08] MEDS ORDERED: DEXTROSE 50% 25 GM/50 ML VIAL IV PRN (11:04)
[2019-08-08] MEDS: amLODIPine 10 MG TABLET PO SCH (12:07)
[2019-08-08] MEDS: HEPARIN 5,000 UNIT/1 ML VIAL SUBCUT SCH ×2 (14:25→21:08)
[2019-08-08] MEDS: ALBUTEROL 2.5 MG/3 ML NEB RESP TX SCH ×2 (14:26→19:47)
[2019-08-08] MEDS: INSULIN LISPRO 100 UNIT/ML SUBCUT SCH ×3 (14:26→21:09)
[2019-08-08] MEDS: BENZONATATE 100 MG CAPSULE PO SCH ×2 (17:20→21:08)
[2019-08-08] MEDS: carvediloL 25 MG TABLET PO SCH (17:49)
[2019-08-08] MEDS: SEVELAMER CARBONATE 800 MG TABLET PO SCH (17:49)
[2019-08-08] MEDS ORDERED: TRAVOPROST 0.004% OPH SOLN 2.5 ML BOTTLE BOTH EYES SCH (21:00)
[2019-08-08] MEDS: PANTOPRAZOLE 40 MG TABLET PO SCH (21:08)
[2019-08-09] MEDS: ALBUTEROL 2.5 MG/3 ML NEB RESP TX SCH ×2 (00:21→07:53)
[2019-08-09] MEDS: HEPARIN 5,000 UNIT/1 ML VIAL SUBCUT SCH (03:54)
[2019-08-09 06:03] LABS: Basophils % 0.7 % (0.0-0.8); Eosinophils # 0.3 10*3/uL (0.0-0.87); Eosinophils % 4.5 % (0.00-10.9); Immature Granulocytes % 0.3 %; Immature Granulocytes Absolute 0.02 #; Lymphocytes % 16.8 % (21.3-54.2); Mean Corpuscular HGB Conc 29.2 GM/DL (32-36); Mean Corpuscular Volume 89.9 FL (87-102); Mean Platelet Volume 11.5 FL (9.6-12.0); Monocytes % 9.2 % (1.7-12.7); Neutrophils % 68.5 % (38.7-73.9); Platelet Count 139 T/CUMM (130-400); Red Blood Count 2.67 MC/CUMM (3.8-5.5); Red Cell Distribution Width 17.5 % (9.3-17.3)
[2019-08-09 06:28] LABS: Calcium 9.2 MG/DL (8.5-10.1); Osmolality,Calculated 283.7 MOS/KG (273-304)
[2019-08-09] MEDS: INSULIN LISPRO 100 UNIT/ML SUBCUT SCH (07:45)
[2019-08-09] MEDS: BENZONATATE 100 MG CAPSULE PO SCH (08:57)
[2019-08-09] MEDS: carvediloL 25 MG TABLET PO SCH (08:57)
[2019-08-09] MEDS: PANTOPRAZOLE 40 MG TABLET PO SCH (08:57)
[2019-08-09] MEDS: SEVELAMER CARBONATE 800 MG TABLET PO SCH (08:57)
[2019-08-09] MEDS: amLODIPine 10 MG TABLET PO SCH (08:57)
[2019-08-09] MEDS ORDERED: ASPIRIN EC 81 MG TABLET PO SCH (09:00)
[2019-08-09] MEDS ORDERED: PANTOPRAZOLE 40 MG TABLET PO SCH (09:00)
[2019-08-09] MEDS ORDERED: FERROUS SULFATE ER 140 MG TABLET PO SCH (09:00)
[2019-08-09 09:44] VITALS: BP 127/62
== END 2019-08-09 11:25 | disposition home health service (06) | DRG 291 ==
LOC: N.ED 06:17 → N.EDINP 10:45 → SUATTDRO 10:45 → N.EDINP 12:47 → N.5E 14:28
PROVIDERS: ADMIT Internal Medicine; ATTEND Internal Medicine

== ENCOUNTER 2020-02-19 08:25 | Inpatient (IN) ==
[2020-02-19] MEDS ORDERED: SODIUM CHLORIDE 0.9% 500 ML IV STA (09:13)
[2020-02-19 09:25] LABS: Basophils # 0.1 10*3/uL (0.0-0.2); Basophils % 0.4 % (0.0-0.8); Eosinophils % 0.2 % (0.00-10.9); Hemoglobin 7.9 GM/DL (12.0-16.0); Immature Granulocytes % 0.4 %; Immature Granulocytes Absolute 0.05 #; Lymphocytes # 2.4 10*3/uL (1.4-4.0); Lymphocytes % 19.7 % (21.3-54.2); Mean Corpuscular HGB Conc 29.3 GM/DL (32-36); Mean Corpuscular Volume 87.9 FL (87-102); Mean Platelet Volume 9.9 FL (9.6-12.0); Monocytes % 7.3 % (1.7-12.7); NRBC # 0.04 10*3/uL; Platelet Count 167 T/CUMM (130-400); Red Blood Count 3.07 MC/CUMM (3.8-5.5); Red Cell Distribution Width 22.6 % (9.3-17.3)
[2020-02-19] MEDS ORDERED: ONDANSETRON 4 MG/2 ML VIAL ONE (09:25)
[2020-02-19 09:48] LABS: Calcium 8.4 MG/DL (8.5-10.1); Hypochromasia 2+; Platelet Estimate Adequate
[2020-02-19] MEDS ORDERED: ACETAMINOPHEN 325 MG TABLET PO PRN (11:37)
[2020-02-19] MEDS ORDERED: DEXTROSE 10% 250 ML BAG IV PRN (11:37)
[2020-02-19] MEDS: POTASSIUM CHLORIDE RIDER 10 MEQ in PREMIX 1 EACH IV SCH ×3 (12:08→21:08)
[2020-02-19] MEDS ORDERED: POTASSIUM CHLORIDE 20 MEQ TABLET PO STA (13:43)
[2020-02-19] MEDS: INSULIN LISPRO 100 UNIT/ML SUBCUT SCH ×2 (18:26→21:10)
[2020-02-19] MEDS: DEXTROSE 10% 250 ML BAG IV PRN (19:47)
[2020-02-19] MEDS: ONDANSETRON 4 MG/2 ML VIAL IV PRN (22:25)
[2020-02-20] MEDS: ONDANSETRON 4 MG/2 ML VIAL IV PRN (03:35)
[2020-02-20 05:29] LABS: Basophils % 0.3 % (0.0-0.8); Eosinophils % 0.2 % (0.00-10.9); Immature Granulocytes % 0.8 %; Lymphocytes # 2.8 10*3/uL (1.4-4.0); Lymphocytes % 21.4 % (21.3-54.2); Mean Corpuscular HGB Conc 28.5 GM/DL (32-36); Mean Corpuscular Volume 89.8 FL (87-102); Mean Platelet Volume 10.7 FL (9.6-12.0); NRBC # 0.04 10*3/uL; Neutrophils % 70.3 % (38.7-73.9); Platelet Count 189 T/CUMM (130-400); Red Blood Count 3.24 MC/CUMM (3.8-5.5); Red Cell Distribution Width 23.2 % (9.3-17.3); White Blood Count 13.2 T/CUMM (4-12)
[2020-02-20 06:08] LABS: Calcium 7.9 MG/DL (8.5-10.1); Osmolality,Calculated 271.2 MOS/KG (273-304)
[2020-02-20 06:14] LABS: Hematocrit 28.1 VOL% (35.7-47.0); Hemoglobin 8.4 GM/DL (12.0-16.0)
[2020-02-20 06:20] LABS: Hypochromasia 2+; Platelet Estimate Adequate
[2020-02-20] MEDS ORDERED: MAGNESIUM SULF RIDER 4 GM in PREMIX 1 EACH IV PRN (07:01)
[2020-02-20] MEDS ORDERED: MAGNESIUM SULF RIDER 2 GM in PREMIX 1 EACH IV PRN (07:01)
[2020-02-20] MEDS: INSULIN LISPRO 100 UNIT/ML SUBCUT SCH ×4 (11:39→21:27)
[2020-02-20] MEDS: PANTOPRAZOLE 40 MG TABLET PO SCH (11:40)
[2020-02-20] MEDS: POTASSIUM CHLORIDE 20 MEQ TABLET PO PRN ×3 (11:41→13:41)
[2020-02-21 06:21] LABS: Calcium 8.9 MG/DL (8.5-10.1); Osmolality,Calculated 271.1 MOS/KG (273-304)
[2020-02-21] MEDS: GLUCAGON 1 MG VIAL IM PRN (06:46)
[2020-02-21] MEDS: DEXTROSE 10% 250 ML BAG IV PRN ×2 (06:50→16:20)
[2020-02-21 06:52] LABS: Basophils # 0.1 10*3/uL (0.0-0.2); Basophils % 0.3 % (0.0-0.8); Eosinophils % 0.1 % (0.00-10.9); Hematocrit 26.9 VOL% (35.7-47.0); Hemoglobin 7.8 GM/DL (12.0-16.0); Immature Granulocytes % 0.6 %; Lymphocytes # 3.8 10*3/uL (1.4-4.0); Lymphocytes % 21.6 % (21.3-54.2); Mean Corpuscular Volume 89.7 FL (87-102); Mean Platelet Volume 10.9 FL (9.6-12.0); Monocytes % 6.6 % (1.7-12.7); NRBC # 0.08 10*3/uL; Neutrophils % 70.8 % (38.7-73.9); Platelet Count 183 T/CUMM (130-400); Red Cell Distribution Width 23.3 % (9.3-17.3); White Blood Count 17.4 T/CUMM (4-12)
[2020-02-21] MEDS: PANTOPRAZOLE 40 MG TABLET PO SCH (08:58)
[2020-02-21] MEDS: INSULIN LISPRO 100 UNIT/ML SUBCUT SCH ×4 (09:00→21:00)
[2020-02-21] MEDS: cefTRIAXone 1,000 MG in SYRINGE 1 EACH IV SCH (12:10)
[2020-02-21 12:29] LABS: Hypochromasia 1+; Platelet Estimate Adequate; Polychromasia Few
[2020-02-22] MEDS: DEXTROSE 10% 250 ML BAG IV PRN (05:06)
[2020-02-22 08:44] LABS: Basophils # 0.1 10*3/uL (0.0-0.2); Basophils % 0.4 % (0.0-0.8); Eosinophils % 0.2 % (0.00-10.9); Hemoglobin 7.1 GM/DL (12.0-16.0); Immature Granulocytes % 0.4 %; Immature Granulocytes Absolute 0.07 #; Lymphocytes # 2.9 10*3/uL (1.4-4.0); Lymphocytes % 17.8 % (21.3-54.2); Mean Corpuscular HGB Conc 29.6 GM/DL (32-36); Mean Corpuscular Volume 88.9 FL (87-102); Mean Platelet Volume 11.2 FL (9.6-12.0); NRBC # 0.05 10*3/uL; Neutrophils % 75.2 % (38.7-73.9); Platelet Count 172 T/CUMM (130-400); White Blood Count 16.4 T/CUMM (4-12)
[2020-02-22 09:15] LABS: Calcium 8.9 MG/DL (8.5-10.1); Osmolality,Calculated 280.8 MOS/KG (273-304)
[2020-02-22] MEDS: INSULIN LISPRO 100 UNIT/ML SUBCUT SCH ×4 (09:39→22:23)
[2020-02-22] MEDS: cefTRIAXone 1,000 MG in SYRINGE 1 EACH IV SCH (09:40)
[2020-02-22] MEDS: PANTOPRAZOLE 40 MG TABLET PO SCH (09:40)
[2020-02-22] MEDS ORDERED: ceFAZolin 1,000 MG in SYRINGE 1 EACH IV ONE (10:51)
[2020-02-22] MEDS ORDERED: VANCOMYCIN INJ 1,000 MG in SODIUM CHLORIDE 0.9% 250 ML IV ONE (13:00)
[2020-02-22] MEDS: GLUCAGON 1 MG VIAL IM PRN (13:09)
[2020-02-22 13:30] LABS: Ferritin 1889.1 ng/ml (8-252)
[2020-02-23 05:44] LABS: Basophils # 0.1 10*3/uL (0.0-0.2); Basophils % 0.4 % (0.0-0.8); Eosinophils % 0.2 % (0.00-10.9); Hematocrit 24.6 VOL% (35.7-47.0); Hemoglobin 7.1 GM/DL (12.0-16.0); Immature Granulocytes % 0.7 %; Immature Granulocytes Absolute 0.11 #; Lymphocytes % 18.6 % (21.3-54.2); Mean Corpuscular HGB Conc 28.9 GM/DL (32-36); Mean Corpuscular Volume 89.1 FL (87-102); Mean Platelet Volume 10.2 FL (9.6-12.0); Monocytes % 5.3 % (1.7-12.7); NRBC # 0.04 10*3/uL; Neutrophils % 74.8 % (38.7-73.9); Platelet Count 177 T/CUMM (130-400); Red Blood Count 2.76 MC/CUMM (3.8-5.5); Red Cell Distribution Width 23.3 % (9.3-17.3); White Blood Count 16.1 T/CUMM (4-12)
[2020-02-23 06:07] LABS: Hypochromasia 1+
[2020-02-23 06:08] LABS: Anisocytosis 1+; Polychromasia Slight; Target Cells Few
[2020-02-23 06:09] LABS: Platelet Estimate Adequate
[2020-02-23] MEDS: GLUCAGON 1 MG VIAL IM PRN (06:11)
[2020-02-23] MEDS: cefTRIAXone 2,000 MG in SYRINGE 1 EACH IV SCH (11:00)
[2020-02-23] MEDS: PANTOPRAZOLE 40 MG TABLET PO SCH (11:11)
[2020-02-23] MEDS: INSULIN LISPRO 100 UNIT/ML SUBCUT SCH (11:12)
[2020-02-23] MEDS ORDERED: HEPARIN 5,000 UNIT/1 ML VIAL ONE (13:10)
[2020-02-23] MEDS ORDERED: BUPIVACAINE MPF 0.25% 30 ML VIAL ONE ×2 (13:11→13:57)
[2020-02-23] MEDS ORDERED: LIDOCAINE 1% 20 ML VIAL ONE (13:11)
[2020-02-23] MEDS ORDERED: ceFAZolin 1,000 MG VIAL ONE (13:17)
[2020-02-23] MEDS ORDERED: DEXTROSE 50% 25 GM/50 ML VIAL IV ONE (13:22)
[2020-02-23] MEDS ORDERED: LIDOCAINE 1%/EPI INJ 20 ML VIAL ONE (13:57)
[2020-02-23] MEDS ORDERED: MIDAZOLAM 2 MG/2 ML VIAL ONE (15:48)
[2020-02-23] MEDS ORDERED: ETOMIDATE 40 MG/20 ML VIAL IV ONE (15:48)
[2020-02-23] MEDS ORDERED: PHENYLEPHRINE 1 MG/10 ML SYRINGE IV ONE (15:48)
[2020-02-23] MEDS ORDERED: KETAMINE 500 MG/10 ML VIAL ONE (15:48)
[2020-02-23] MEDS ORDERED: DEXTROSE 10% 1,000 ML IV SCH (16:30)
[2020-02-23] MEDS ORDERED: VANCOMYCIN INJ 500 MG in SODIUM CHLORIDE 0.9% 250 ML IV PRN (17:00)
[2020-02-23] MEDS ORDERED: VANCOMYCIN INJ 500 MG in SODIUM CHLORIDE 0.9% 100 ML IV ONE (17:00)
[2020-02-23] MEDS: DEXTROSE 10% 500 ML IV SCH (21:00)
[2020-02-24] MEDS: DEXTROSE 10% 500 ML IV SCH (06:19)
[2020-02-24 06:26] LABS: Basophils % 0.3 % (0.0-0.8); Eosinophils % 0.2 % (0.00-10.9); Hematocrit 23.9 VOL% (35.7-47.0); Hemoglobin 6.9 GM/DL (12.0-16.0); Immature Granulocytes % 0.6 %; Immature Granulocytes Absolute 0.08 #; Lymphocytes # 2.1 10*3/uL (1.4-4.0); Lymphocytes % 15.8 % (21.3-54.2); Mean Corpuscular HGB Conc 28.9 GM/DL (32-36); Mean Corpuscular Volume 89.5 FL (87-102); Mean Platelet Volume 10.5 FL (9.6-12.0); Monocytes % 4.5 % (1.7-12.7); NRBC # 0.03 10*3/uL; Neutrophils % 78.6 % (38.7-73.9); Platelet Count 140 T/CUMM (130-400); Red Blood Count 2.67 MC/CUMM (3.8-5.5); Red Cell Distribution Width 23.2 % (9.3-17.3); White Blood Count 13.2 T/CUMM (4-12)
[2020-02-24 06:41] LABS: Calcium 9.3 MG/DL (8.5-10.1); Osmolality,Calculated 276.4 MOS/KG (273-304)
[2020-02-24 07:14] LABS: Anisocytosis 1+; Hypochromasia 1+; Microcytosis 1+; Polychromasia Slight
[2020-02-24 07:15] LABS: Platelet Estimate Adequate; Target Cells Few
[2020-02-24 07:16] LABS: Tear Drop Cells Slight
[2020-02-24] MEDS: cefTRIAXone 2,000 MG in SYRINGE 1 EACH IV SCH (10:15)
[2020-02-24] MEDS: PANTOPRAZOLE 40 MG TABLET PO SCH (10:15)
[2020-02-24 12:17] VITALS: BP 90/51
== END 2020-02-24 13:40 | disposition hospice, home (50) | DRG 252 ==
LOC: EDUNIT# → EDBD → N.EDINP 08:25 → N.ED 08:25 → SUATTDRO 12:02 → N.TELES 14:15 → SUATTDRO 02-22 11:47
PROVIDERS: ADMIT Family Medicine; ATTEND Internal Medicine
PROC: VAVDCFI (2020-02-23 13:47)